=== PATIENT | female | born 1960 | race Caucasian/White ===

== ENCOUNTER 2016-12-14 18:58 | Emergency (ER) | payer MEDICARE, MEDICAID ==
[2016-12-14 19:59] LABS: #Eosinphils 0.1 thou/uL (0.0-0.7); #Lymphocytes 1.4 thou/uL (1.20-3.40); #Monocytes 0.5 thou/uL (0.11-0.59); #Neutrophils 4.1 thou/uL (1.40-6.50); %Basophils 0.8 % (0.0-1.0); %Eosinophils 2.3 % (0.0-10.0); %Lymphocytes 23.1 % (21.0-51.0); %Monocytes 7.7 % (0.0-10.0); Mean Platelet Volume 6.9 fL (7.4-10.4); Red Blood Cell (RBC) Count 4.38 mill/uL (4.20-5.40); White Blood Cell (WBC) Count 6.2 thou/uL (4.8-10.8)
[2016-12-14] MEDS ORDERED: Ondansetron ODT 4 MG TAB ONE (20:11)
[2016-12-14 20:20] LABS: ALT (SGPT) 12 U/L (8-55); AST (SGOT) 15 U/L (5-34); Alkaline Phosphatase 94 U/L (40-150); Anion Gap 10 mmol/L (10-20); BUN (Urea Nitrogen) 23 mg/dL (9.8-20.1); Bilirubin, Total 0.2 mg/dL (0.2-1.2); Calc. Creatinine Clearance 0 mL/min (70-130); Calcium 8.3 mg/dL (7.8-10.44); Carbon Dioxide 31 mmol/L (22-29); Chloride 101 mmol/L (98-107); Estimated GFR-MDRD 65; Globulin 3.8 g/dL (2.4-3.5); Protein, Total 7.4 g/dL (6.0-8.3)
== END 2016-12-14 22:15 | disposition home or self-care (01) ==
LOC: ERS 18:58
DX: K92.2 Gastrointestinal hemorrhage, unspecified (principal); M48.02 Spinal stenosis, cervical region; E03.9 Hypothyroidism, unspecified; K21.9 Gastro-esophageal reflux disease without esophagitis; F41.9 Anxiety disorder, unspecified; F31.9 Bipolar disorder, unspecified; Z79.891 Long term (current) use of opiate analgesic; Z79.899 Other long term (current) drug therapy
CPT/HCPCS: 36415; 80053; 82274; 85025; 86850; 86900; 86901; Q0162

== ENCOUNTER 2016-12-16 12:20 | Outpatient (CLI) | payer MEDICARE, MEDICAID ==
[~2016-12-16 12:20] MED LIST: Iopamidol 370 76% 100 ML VIAL ONE; Iopamidol 370 76% 50 ML VIAL FS ONE
--- NOTE | 2016-12-16 16:20 | CT ---
ABDOMEN AND PELVIC CT SCAN WITH IV CONTRAST: Date: 12/16/16 HISTORY: 56-year-old female with lower abdominal pain. Claustrophobia. History of prior tubal ligation and hy sterectomy. COMPARISON: 07/03/16. FINDINGS: Several small pleural based nodules are noted in the right lower chest. There is a stable 3.8 cm low attenuation cyst in the dome of the right lobe of the liver posteriorly. Small hiatal hernia. Statu s post cholecystectomy. Pancreas and spleen are unremarkable with a small, less than 1.0 cm diameter , stable low attenuation focus in the spleen. The kidneys show no evidence of renal calculus or acut e obstruction. No evidence for large or small bowel obstruction. Bilateral fat-containing inguina l hernias. No abscess, adenopathy, or abnormal fluid collection. IMPRESSION: Stable small pleural based right lower chest lung nodules. Stable cyst in the posterior dome of the right lobe of the liver. Status post hysterectomy. No significant new process from prior study of . POS: [facility]
== END 2016-12-16 12:21 | disposition home or self-care (01) ==
LOC: CT 12:20
PROVIDERS: ATTEND Internal Medicine Gastroenterology
DX: K92.2 Gastrointestinal hemorrhage, unspecified (principal); R10.30 Lower abdominal pain, unspecified; R91.8 Other nonspecific abnormal finding of lung field; K76.89 Other specified diseases of liver; Z90.710 Acquired absence of both cervix and uterus
CPT/HCPCS: 74177

== ENCOUNTER 2016-12-16 13:42 | Emergency (ER) | payer MEDICARE, MEDICAID ==
--- NOTE | 2016-12-16 14:13 | CT ---
CT HEAD NONCONTRAST: Date: 12/16/16 HISTORY: Syncope. Altered mental status. COMPARISON: 07/03/16. FINDINGS: There is no evidence of acute intracranial hemorrhage or infarct. The ventricles appear normal in si ze, shape, and position. There is no mass effect or midline structures. Visualized paranasal sinuses remain well aerated. IMPRESSION: No acute intracranial abnormalities are demonstrated on noncontrast CT head. Findings called to Dr. Perez in the emergency department at 1354 hours. CODE CR. POS: [facility]
[2016-12-16 14:26] LABS: #Basophils 0.1 thou/uL (0.0-0.2); #Eosinphils 0.1 thou/uL (0.0-0.7); #Lymphocytes 1.3 thou/uL (1.20-3.40); #Monocytes 0.4 thou/uL (0.11-0.59); #Neutrophils 3.3 thou/uL (1.40-6.50); %Basophils 1.2 % (0.0-1.0); %Eosinophils 2.3 % (0.0-10.0); Hematocrit 38.2 % (36.0-47.0); Mean Platelet Volume 7.2 fL (7.4-10.4); Red Blood Cell (RBC) Count 4.28 mill/uL (4.20-5.40); White Blood Cell (WBC) Count 5.1 thou/uL (4.8-10.8)
[2016-12-16 14:32] LABS: PTT 28.7 SEC (22.9-36.1); Prothrombin Time 13.1 SEC (12.0-14.7)
[2016-12-16 14:39] LABS: Bilirubin Negative (Negative); Blood, Urine Negative (Negative); Glucose, Urine (Dipstick) Negative (Negative); Ketone, Urine Negative (Negative); Nitrite Negative (Negative); Protein, Urine (Dipstick) Negative (Neg-Trace); Urobilinogen 0.2 mg/dL (0.2-1.0)
[2016-12-16 14:41] LABS: ALT (SGPT) 13 U/L (8-55); AST (SGOT) 18 U/L (5-34); Alkaline Phosphatase 104 U/L (40-150); Anion Gap 16 mmol/L (10-20); BUN (Urea Nitrogen) 27 mg/dL (9.8-20.1); Bilirubin, Total 0.2 mg/dL (0.2-1.2); CK (CPK) 113 U/L (29-168); Calc. Creatinine Clearance 0 mL/min (70-130); Calcium 8.1 mg/dL (7.8-10.44); Carbon Dioxide 27 mmol/L (22-29); Chloride 99 mmol/L (98-107); Estimated GFR-MDRD 77; Globulin 3.7 g/dL (2.4-3.5); Protein, Total 7.2 g/dL (6.0-8.3)
[2016-12-16 14:50] LABS: Troponin I Less than 0.010 ng/mL (< 0.028)
== END 2016-12-16 15:50 | disposition home or self-care (01) ==
LOC: ERS 13:42
DX: E16.2 Hypoglycemia, unspecified (principal); E03.9 Hypothyroidism, unspecified; K21.9 Gastro-esophageal reflux disease without esophagitis; I25.10 Atherosclerotic heart disease of native coronary artery without angina pectoris; F41.9 Anxiety disorder, unspecified; F31.81 Bipolar II disorder; F43.10 Post-traumatic stress disorder, unspecified; Z79.899 Other long term (current) drug therapy
CPT/HCPCS: 36416; 70450; 74177; 80053; 81003; 82553; 84484; 85025; 85610; 85730; 93005; 94760

== ENCOUNTER 2017-02-06 01:55 | Emergency (ER) | payer MEDICARE, MEDICAID ==
[2017-02-06] MEDS ORDERED: Ondansetron HCl/PF 4 MG/2 ML Vial ONE (02:56)
[2017-02-06 03:11] LABS: #Eosinphils 0.1 thou/uL (0.0-0.7); #Lymphocytes 1.3 thou/uL (1.20-3.40); #Monocytes 0.4 thou/uL (0.11-0.59); #Neutrophils 3.6 thou/uL (1.40-6.50); %Basophils 0.7 % (0.0-1.0); %Eosinophils 1.7 % (0.0-10.0); %Lymphocytes 24.2 % (21.0-51.0); %Monocytes 7.8 % (0.0-10.0); Hematocrit 38.9 % (36.0-47.0); Mean Platelet Volume 7.3 fL (7.4-10.4); Red Blood Cell (RBC) Count 4.42 mill/uL (4.20-5.40); White Blood Cell (WBC) Count 5.4 thou/uL (4.8-10.8)
[2017-02-06] MEDS ORDERED: Dicyclomine 20 MG TAB ONE (03:15)
[2017-02-06] MEDS ORDERED: Promethazine HCl 25 MG/ML VIAL ONE (03:15)
[2017-02-06 03:37] LABS: Troponin I Less than 0.010 ng/mL (< 0.028)
[2017-02-06 04:03] LABS: ALT (SGPT) 18 U/L (8-55); AST (SGOT) 25 U/L (5-34); Alkaline Phosphatase 91 U/L (40-150); Anion Gap 11 mmol/L (10-20); BUN (Urea Nitrogen) 16 mg/dL (9.8-20.1); Bilirubin, Total 0.3 mg/dL (0.2-1.2); Calc. Creatinine Clearance 0 mL/min (70-130); Calcium 8.5 mg/dL (7.8-10.44); Carbon Dioxide 31 mmol/L (22-29); Chloride 99 mmol/L (98-107); Estimated GFR-MDRD 73; Lipase 34 U/L (8-78); Protein, Total 7.8 g/dL (6.0-8.3)
[2017-02-06] MEDS ORDERED: Ibuprofen 800 MG TAB ONE (04:10)
== END 2017-02-06 05:52 | disposition home or self-care (01) ==
LOC: ERS 01:55
DX: R11.2 Nausea with vomiting, unspecified (principal); E03.9 Hypothyroidism, unspecified; K21.9 Gastro-esophageal reflux disease without esophagitis; I25.10 Atherosclerotic heart disease of native coronary artery without angina pectoris; F41.9 Anxiety disorder, unspecified; F31.9 Bipolar disorder, unspecified; M19.90 Unspecified osteoarthritis, unspecified site; Z79.899 Other long term (current) drug therapy
CPT/HCPCS: 80053; 82553; 83690; 84484; 85025; 96365; 96366; 96375; J2405; J2550

== ENCOUNTER 2017-02-07 20:34 | Emergency (ER) | payer MEDICARE, MEDICAID ==
[2017-02-07 21:36] LABS: #Eosinphils 0.1 thou/uL (0.0-0.7); #Lymphocytes 0.9 thou/uL (1.20-3.40); #Monocytes 0.4 thou/uL (0.11-0.59); #Neutrophils 2.4 thou/uL (1.40-6.50); %Basophils 0.8 % (0.0-1.0); %Eosinophils 2.5 % (0.0-10.0); %Lymphocytes 24.1 % (21.0-51.0); %Monocytes 10.8 % (0.0-10.0); Hematocrit 35.2 % (36.0-47.0); Mean Platelet Volume 6.5 fL (7.4-10.4); Red Blood Cell (RBC) Count 3.93 mill/uL (4.20-5.40); White Blood Cell (WBC) Count 3.8 thou/uL (4.8-10.8)
[2017-02-07] MEDS ORDERED: Promethazine HCl 25 MG/ML VIAL ONE (21:50)
[2017-02-07 21:56] LABS: ALT (SGPT) 15 U/L (8-55); AST (SGOT) 20 U/L (5-34); Alkaline Phosphatase 73 U/L (40-150); Anion Gap 7 mmol/L (10-20); BUN (Urea Nitrogen) 12 mg/dL (9.8-20.1); Bilirubin, Total 0.4 mg/dL (0.2-1.2); Calc. Creatinine Clearance 0 mL/min (70-130); Calcium 7.9 mg/dL (7.8-10.44); Carbon Dioxide 31 mmol/L (22-29); Chloride 104 mmol/L (98-107); Estimated GFR-MDRD 73; Globulin 3.2 g/dL (2.4-3.5); Lipase 35 U/L (8-78); Protein, Total 6.5 g/dL (6.0-8.3)
--- NOTE | 2017-02-07 23:24 | CT ---
EXAM: ABDOMEN CT WITHOUT CONTRAST PELVIC CT WITHOUT CONTRAST 02/07/17 HISTORY: Nausea. Diarrhea. Abdominal pain. COMPARISON: 06/13/13, 12/16/16. TECHNIQUE: An abdomen and pelvic CT are performed without contrast. Coronal reformatted images are submitted for interpretation. FINDINGS: ABDOMEN CT: Dependent atelectatic changes in the lung bases. Stable nodules in the right lower lobe and middle lo be. Heart size is normal. No significant pericardial fluid. Descending thoracic aorta has a normal ca liber. Abdominal aorta has a normal caliber. Symmetric attenuation of the psoas muscles. Small hiatal hernia is noted. Limited evaluation of the alimentary canal due to lack of oral contrast . No evidence of bowel obstruction. Multiple normal caliber small bowel loops are noted. Ileocecal ju nction is normal. Normal caliber appendix emanates from the cecal apex. No evidence of colonic disten tion. There is scattered fecal material throughout the colon. Occasional diverticulum. No diverticuli tis. Bilaterally, no hydronephrosis, nephrolithiasis, or perinephric fat stranding. Bilateral ureters have a normal caliber. No hydroureter, periureteral fat stranding or ureterolithiasis. Limited evaluation of the solid organs due to the lack IV contrast. Stable cyst in the right hepatic lobe measuring approximately 3 cm. No solid organ abnormality. Gallbladder is surgically absent. No mesenteric mass, lymphadenopathy, free air or free fluid. PELVIC CT: Surgically absent uterus. No mass, lymphadenopathy, free air or free fluid. Urinary bladder is unrema rkable. No bladder calcification. There are no lytic or blastic lesions in the osseous structures. IMPRESSION: 1. Stable nodules in the right lower lobe and middle lobe. 2. Stable cyst in the right hepatic lobe. 3. No evidence of nephrolithiasis or obstructive uropathy. 4. Normal caliber appendix. 5. No evidence of bowel obstruction. POS: [facility]
[2017-02-08 00:06] LABS: Bilirubin Negative (Negative); Blood, Urine Negative (Negative); Glucose, Urine (Dipstick) Negative (Negative); Ketone, Urine 15 mg/dL (Negative); Nitrite Negative (Negative); Protein, Urine (Dipstick) Negative (Neg-Trace); Urobilinogen 0.2 mg/dL (0.2-1.0)
[2017-02-08] MEDS ORDERED: Ciprofloxacin 500 MG TAB ONE (01:00)
== END 2017-02-08 01:00 | disposition home or self-care (01) ==
LOC: ERS 20:34
DX: R10.30 Lower abdominal pain, unspecified (principal); R19.7 Diarrhea, unspecified; K58.9 Irritable bowel syndrome, unspecified; E03.9 Hypothyroidism, unspecified; K21.9 Gastro-esophageal reflux disease without esophagitis; I25.10 Atherosclerotic heart disease of native coronary artery without angina pectoris; F41.9 Anxiety disorder, unspecified; F31.9 Bipolar disorder, unspecified; Z79.891 Long term (current) use of opiate analgesic; Z79.899 Other long term (current) drug therapy
CPT/HCPCS: 36415; 74176; 80053; 81003; 83690; 85025; 96365; 96366; 96372; J2550

== ENCOUNTER → 2017-02-28 | Outpatient (CLI) | payer MEDICARE, MEDICAID | LOC: CANPRECLI → BICULT 07:04 | PROVIDERS: ATTEND Nurse Practitioner Family | DX: Z53.9 Procedure and treatment not carried out, unspecified reason (principal); N63.10 Unspecified lump in the right breast, unspecified quadrant; N64.4 Mastodynia | CPT/HCPCS: 76642; G0204; G0279; 77066 ==

== ENCOUNTER 2017-03-04 17:40 | Inpatient (IN) | payer MEDICARE, MEDICAID ==
[~2017-03-04 17:40] MED LIST changes: +ISOVUE-370 76%-LOCM 1 ML ONE; -Iopamidol 370 76% 100 ML VIAL ONE; -Iopamidol 370 76% 50 ML VIAL FS ONE
[2017-03-04 18:45] LABS: #Basophils 0.1 thou/uL (0.0-0.2); #Lymphocytes 0.2 thou/uL (1.20-3.40); #Monocytes 0.6 thou/uL (0.11-0.59); #Neutrophils 3.5 thou/uL (1.40-6.50); %Basophils 1.3 % (0.0-1.0); %Lymphocytes 4.5 % (21.0-51.0); %Monocytes 13.9 % (0.0-10.0); %Neutrophils 79.3 % (42.0-75.0); Hemoglobin 11.1 g/dL (12.0-16.0); Mean Corpuscular HGB CONC 32.4 g/dL (32.0-36.0); Mean Corpuscular Hemoglobin 28.3 pg (27.0-31.0); Mean Corpuscular Volume 87.3 fl (81.0-99.0); Mean Platelet Volume 6.7 fL (7.4-10.4); Platelet Count 200 thou/uL (130-400); RBC Distribution Width 12.7 % (11.5-14.5); Red Blood Cell (RBC) Count 3.92 mill/uL (4.20-5.40); White Blood Cell (WBC) Count 4.5 thou/uL (4.8-10.8)
--- NOTE | 2017-03-04 18:50 | RAD ---
UPRIGHT PORTABLE CHEST ONE VIEW: 03/04/17 HISTORY: 56-year-old female with fever and cough and bodyaches. Heart size is within upper range of normal limits. The lungs are clear. Large body habitus someone lo wers the sensitivity of this study. IMPRESSION: No acute intrathoracic disease. No evidence of pneumonia. Stable from prior study, 11/12/16. POS: [facility]
[2017-03-04 19:04] LABS: Anion Gap 11 mmol/L (10-20); BUN (Urea Nitrogen) 12 mg/dL (9.8-20.1); Calc. Creatinine Clearance 0 mL/min (70-130); Calcium 8.2 mg/dL (7.8-10.44); Carbon Dioxide 30 mmol/L (22-29); Chloride 99 mmol/L (98-107); Estimated GFR-MDRD 78; Glucose 119 mg/dL (70-105); Sodium 136 mmol/L (136-145)
[2017-03-04 19:35] LABS: CKMB 0.6 ng/mL (0-6.6); Troponin I Less than 0.010 ng/mL (< 0.028)
[2017-03-04] MEDS ORDERED: Mag-Al 1200 mg/1200 mg/30 ML UDCUP ONE (19:47)
[2017-03-04] MEDS ORDERED: Lidocaine Viscous Sol 2% 15 ml UD Cup ONE (19:47)
[2017-03-04] MEDS ORDERED: Ketorolac Tromethamine 30 MG/ML VIAL ONE (19:48)
[2017-03-04] MEDS ORDERED: Oseltamivir 75 MG CAP PO SCH (20:00)
--- NOTE | 2017-03-04 22:30 | CT ---
CHEST CT ANGIOGRAM INCLUDING 3D RENDERING: HISTORY: 56-year-old female with hypoxia and dyspnea and fever. COMPARISON: Chest CT 08/15/14. There are multiple small overall stable appearing pulmonary nodules bilaterally when compared to the prior 08/15/14 study. There is also some enlargement of the right hilar lymph node region which was als o demonstrated and shows little change from the prior 2014 study. There is somewhat less than optimal contrast opacification of the pulmonary artery tree. The central pulmonary arteries are free of thro mbus. The more peripheral pulmonary arteries are somewhat less than optimally evaluated because of th e decreased contrast bolus. There is no significant CT evidence for acute pulmonary embolism. No ple ural effusion or pericardial effusion. Cyst in the posterior right upper lobe of the liver. IMPRESSION: Relatively poor pulmonary artery opacification. No central pulmonary artery thrombosis. Some of the m id and more peripheral pulmonary arteries are less than optimally evaluated, but there is no CT evide nce for significant acute pulmonary embolism demonstrated. Small stable bilateral nodules. Minimal ri ght hilar lymph node enlargement but this appeared to be present back on the 2014 study. Stable liver cyst. POS: [facility]
[2017-03-04 23:22] VITALS: BMI 50.9
[2017-03-04] MEDS ORDERED: Calcium Carbonate 500 MG ChewTAB PO PRN (23:23)
[2017-03-04] MEDS ORDERED: Chloraseptic Spray 180 ml Bottle PO PRN (23:23)
[2017-03-04] MEDS ORDERED: Benzonatate 100 MG CAP PO PRN (23:23)
[2017-03-04] MEDS ORDERED: hydrALAZINE 20 MG/ML VIAL SLOW IVP PRN (23:23)
[2017-03-04] MEDS ORDERED: Famotidine 20 MG TAB PO SCH (23:45)
[2017-03-05] MEDS: Ondansetron HCl/PF 4 MG/2 ML Vial IVP PRN ×4 (00:04→19:38)
[2017-03-05] MEDS: Famotidine 20 MG TAB PO SCH ×3 (00:16→20:24)
[2017-03-05] MEDS: Sodium Chloride 0.9% 1,000 ML IV SCH ×2 (00:18→13:00)
[2017-03-05 00:20] LABS: Troponin I Less than 0.010 ng/mL (< 0.028)
[2017-03-05] MEDS ORDERED: Acetaminophen 325 MG TAB PO PRN (01:42)
[2017-03-05] MEDS: HYDROcodone/Acetaminophen 10/325 mg Tablet PO PRN ×3 (02:04→20:24)
[2017-03-05 06:25] LABS: ALT (SGPT) 16 U/L (8-55); AST (SGOT) 22 U/L (5-34); Albumin 3.2 g/dL (3.5-5.0); Alkaline Phosphatase 64 U/L (40-150); Anion Gap 9 mmol/L (10-20); BUN (Urea Nitrogen) 12 mg/dL (9.8-20.1); Bilirubin, Total 0.2 mg/dL (0.2-1.2); Calc. Creatinine Clearance 201 mL/min (70-130); Calcium 7.8 mg/dL (7.8-10.44); Carbon Dioxide 27 mmol/L (22-29); Estimated GFR-MDRD 83; Glucose 95 mg/dL (70-105); Protein, Total 6.2 g/dL (6.0-8.3); Sodium 133 mmol/L (136-145)
[2017-03-05 06:29] LABS: Troponin I Less than 0.010 ng/mL (< 0.028)
[2017-03-05 06:32] LABS: Chloride 101 mmol/L (98-107)
[2017-03-05 06:40] LABS: Band 2 % (5-11); Eosinophils 1 % (0-10); Hemoglobin 9.9 g/dL (12.0-16.0); Lymphocytes 6 % (21-51); MDiff Complete? YES; Mean Corpuscular HGB CONC 31.5 g/dL (32.0-36.0); Mean Corpuscular Hemoglobin 27.8 pg (27.0-31.0); Mean Corpuscular Volume 88.2 fl (81.0-99.0); Mean Platelet Volume 7.1 fL (7.4-10.4); Monocytes 9 % (0-10); Neutrophil 81 % (42-75); PLT Morphology Comment Appears Adequate; Platelet Count 202 thou/uL (130-400); RBC Distribution Width 12.8 % (11.5-14.5); Red Blood Cell (RBC) Count 3.56 mill/uL (4.20-5.40); White Blood Cell (WBC) Count 3.6 thou/uL (4.8-10.8)
--- NOTE | 2017-03-05 07:11 | HP ---
CHIEF COMPLAINT: Flu-like symptoms and shortness of breath. HISTORY OF PRESENT ILLNESS: This is a 56-year-old pleasant lady who was apparently in usual state of health, called 911 because of body aches, shortness of breath, fever. She was brought to the emerge ncy room. Flu B was positive and in the ER, she was being evaluated and was monitored and the ER luanney saman noted that her room air sats were as low as 83. Because she was concerned, he called me and shena levine are going to admit the patient for hypoxia and the treatment of the flu. The patient says that she had a fever of 102, body aches, cough since yesterday morning because of being around people who wer e sick. The patient also complains of some right lower extremity tenderness, pain which has been on and off for a long time. PAST MEDICAL HISTORY: Significant for IBS, hypothyroidism, GERD, degenerative disk disease, some mil d coronary artery disease, folliculitis, anxiety, and depression. ALLERGIES: PAPER TAPE, CEFAZOLIN, PYRIDIUM, SOLU-MEDROL, SULFA ANTIBIOTICS. MEDICATIONS: Please see MAR. SOCIAL HISTORY: Does not smoke, drink, or do recreational drugs. PAST SURGICAL HISTORY: Significant for tubal ligation, carpal tunnel surgery, cyst removal, cholecys tectomy, hysterectomy, heart catheterization. SOCIAL HISTORY: Does not smoke, drink, or do recreational drugs. FAMILY HISTORY: Negative for diabetes and hypertension. MEDICATIONS: Please see MAR. REVIEW OF SYSTEMS: Significant for fever, chills, headache, shortness of breath, otherwise no eye pa in, no hearing loss, . Some cough with on and off sputum production. No chest pain, no diarrhe a, dysuria, or polyuria. No memory or mood changes. No neck pain. Complains of pain in the right l ower extremity. PHYSICAL EXAMINATION: VITAL SIGNS: Blood pressure is: 176/96, respirations 18, temperature 99.5, satting 95% on room air. The patient's blood pressure was 133/75, pulse 105, respirations 14, temperature 98.5. GENERAL: The patient is lying in bed in distress because of the body pain, chest pain. The patient' s pulse is tachycardic. HEENT: Atraumatic, normocephalic. Pupils equally, round, reactive to light. Extraocular movements are intact. Mucous membranes are moist. NECK: Supple. No JVD. CHEST: Breath sounds are heard. HEART: S1, S2 normal. Tachycardic. ABDOMEN: Soft, obese. Bowel sounds heard. EXTREMITIES: There is tenderness and erythema to the right leg which she says is on and off, some mi ld edema on both the legs. NEUROLOGICAL: Alert, awake, oriented. No cranial deficits. No sensorimotor deficits. PSYCHIATRIC: She has normal affect. LABORATORY DATA: A CT scan of the chest is with PE protocol is pending. Chest x-ray shows no pneumo cristobal. Troponin is less than 0.01. Sodium is 136, potassium is 4, creatinine is 99, BUN is 12, creati nine is 7.76, glucose is 119. WBC count is 4.5, hemoglobin is 11, platelet is 200. ASSESSMENT AND PLAN: 1. 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 The patient is on Tamiflu. Neb treatments will be in place. We w ill do a sputum culture and do the need for. 2. Cellulitis, possibly secondary to venous stasis. We will do IV vancomycin. We will do blood cul tures and do Dopplers to rule out deep vein thrombosis. 3. Acute respiratory failure with hypoxia with sats of 83%. We will do CT scan of the chest with PE protocol. I will consult Pulmonary and follow their recommendations. 4. Morbid obesity. The patient will be counseled to lose weight. 5. Possible obstructive sleep apnea, stable. We will do echocardiogram and BNP to check for cardiac status and pulmonary hypertension as well. 6. Lovenox for deep venous thrombosis prophylaxis. I will work with the consultants for further car ing for the patient.
[2017-03-05] MEDS: Enoxaparin Sodium 40 MG/0.4 ML SYRINGE SC SCH (08:57)
[2017-03-05] MEDS: Oseltamivir 75 MG CAP PO SCH ×2 (08:58→20:25)
[2017-03-05] MEDS ORDERED: FLU VACC QS2017-18 36 mo. & older 0.5 ML SYRINGE IM ONE (09:00)
--- NOTE | 2017-03-05 11:18 | ULT ---
BILATERAL LOWER EXTREMITY VENOUS DOPPLER: Date: 03/05/17 HISTORY: Bilateral lower extremity swelling. COMPARISON: None. FINDINGS: Real-time Baldwin scale and color Doppler with spectral analysis of the bilateral lower extremity venous system was performed. The common femoral, femoral, proximal portions of greater saphenous and deep f emoral veins, as well as the popliteal and posterior tibial veins are interrogated. Normal flow, augmentation, and compression. No deep venous thrombosis. Mild edema. IMPRESSION: No deep venous thrombosis. POS: [facility]
[2017-03-05 12:15] LABS: Bilirubin Negative (Negative); Blood, Urine Negative (Negative); Clarity CLOUDY (Clear); Glucose, Urine (Dipstick) Negative (Negative); Leukocyte Negative (Negative); Nitrite Negative (Negative); Protein, Urine (Dipstick) 30 mg/dL (Neg-Trace); Specific Gravity, Urine 1.038 (1.002-1.036); Urobilinogen 0.2 mg/dL (0.2-1.0)
[2017-03-05 12:16] LABS: Bacteria/HPF Rare-Few HPF (None Seen); Hyaline Casts/LPF 0-3 HYALINE CAST LPF (0-3 Hyaline); WBC/HPF 0-3 HPF (0-3)
[2017-03-05 12:57] LABS: Troponin I Less than 0.010 ng/mL (< 0.028)
[2017-03-05] MEDS: HYDROcodone/Acetaminophen 5/325 mg Tablet PO PRN (14:57)
--- NOTE | 2017-03-05 16:26 | PDOC.PN ---
- Subjective Encounter Start Date: 03/05/17 Encounter Start Time: 16:24 Patient seen and examined. No new complaints. No overnight events - Objective MAR Reviewed: Yes Vital Signs & Weight: Vital Signs (12 hours) Temp Pulse Resp BP Pulse Ox 03/05/17 16:00 98.3 F 94 18 117/56 L 03/05/17 12:39 99 F 68 20 127/61 95 03/05/17 10:43 98.6 F 88 18 Result Diagrams: 03/05/17 05:30 03/05/17 05:30 Phys Exam - Physical Examination Constitutional: NAD HEENT: PERRLA Neck: no JVD Respiratory: no wheezing Cardiovascular: no significant murmur Gastrointestinal: non-tender Musculoskeletal: pulses present, edema present erythema resolving Neurological: moves all 4 limbs Psychiatric: A&O x 3 Dx/Plan (1) SIRS (systemic inflammatory response syndrome) Code(s): R65.10 - SIRS OF NON-INFECTIOUS ORIGIN W/O ACUTE ORGAN DYSFUNCTION Status: Acute (2) Influenza B Code(s): J10.1 - FLU DUE TO OTH IDENT INFLUENZA VIRUS W OTH RESP MANIFEST Status: Acute (3) Cellulitis Code(s): L03.90 - CELLULITIS, UNSPECIFIED Status: Acute (4) GERD (gastroesophageal reflux disease) Code(s): K21.9 - GASTRO-ESOPHAGEAL REFLUX DISEASE WITHOUT ESOPHAGITIS Status: Acute (5) Obesity, Class III, BMI 40-49.9 (morbid obesity) Code(s): E66.01 - MORBID (SEVERE) OBESITY DUE TO EXCESS CALORIES Status: Acute (6) Acute respiratory failure with hypoxia Code(s): J96.01 - ACUTE RESPIRATORY FAILURE WITH HYPOXIA Status: Acute - Plan * monitor pulse ox * pulm input awaited * oxygenation improved
[2017-03-05] MEDS ORDERED: Diazepam 5 MG TAB PO SCH (23:00)
[2017-03-05] MEDS ORDERED: DULoxetine 30 MG CAP PO SCH (23:00)
--- NOTE | 2017-03-05 23:04 | CON ---
DATE OF CONSULTATION: 03/05/2017 HISTORY OF PRESENT ILLNESS: Ms. Angela is a 56-year-old female. She presented to the hospital the [facility], 03/04/2017 and was admitted with complaints of bodyaches, fever, chills, and shortness of breat h. She was noted to be hypoxemic in the emergency room, so she was admitted. PAST MEDICAL HISTORY: Remarkable for irritable bowel syndrome, hypothyroidism, reflux disease, degenerative disk disease, m ild coronary disease, and history of depression. SOCIAL HISTORY: She is nonsmoker, nondrinker. She denies drugs. ALLERGIES: She reports allergies to CEPHALOSPORIN, PYRIDIUM, STEROIDS, SULFA. PAST SURGICAL HISTORY: Remarkable for cholecystectomy, tubal ligation, carpal tunnel surgery, hyster ectomy, and heart catheterization. There is no family history of diabetes, hypertension, lung disease at an early age. REVIEW OF SYSTEMS: Positive for fever, subjective chills, headache. She did not measure her tempera ture at home, what felt like she had fever. Shortness of breath was only if she moved around and it was more of a sensation of shortness of breath than actual tachypnea. She has had a cough with this. She denies pleurisy. She has had no hemoptysis. She denies orthopnea or paroxysmal nocturnal dysp micaela. Remainder of her 10-point review of systems is otherwise negative. PHYSICAL EXAMINATION: VITAL SIGNS: She is afebrile, heart rate is 94, respiratory rate is 18, oximetry is 95 on 1 liter. Blood pressure 117/56. HEENT: Pupils are equal. Her conjunctiva is injected. NECK: Neck supple. No lymphadenopathy. LUNGS: Remarkable for clear breath sounds. She is not wheezing. HEART: Regular rhythm. S1 and S2 are normal. ABDOMEN: Soft. EXTREMITIES: Nontender extremities without clubbing, cyanosis, or edema. She does have some stasis changes, worse in her right lower limb and her left lower limb. She says these areas have been changed in years. LABOATORY DATA: White count 3.6, hemoglobin 9.9, platelets 202,000. Sodium 133, potassium 4, chlori de 101, bicarb 27, BUN 12, creatinine 0.7. Chest radiograph was reviewed and shows no infiltrates. CT pulmonary angiogram was done shows some s mall nodular densities in both lungs. Compared to 08/25/2016 stay, these were unchanged. Support pulmonary angiogram, but there is no alveolar infiltrates suggestive of pneumonia. Chest rad iograph and chest CT were reviewed by me. Flu swab was apparently positive. IMPRESSION: Influenza. There is no clinical evidence of pneumonia. She may have a cough, but I suspect this is viral mediat ed. I really do not see a clear cut reason to keep her on telemetry and is debatable whether or not she needs to be in the hospital now that she has been hydrated. She does not look like she has flu. She was admitted with a diagnosis of cellulitis, but she tells me this is how her legs always look. Her hypoxemia is most likely secondary to atelectasis and mucous plugging with her bronchial inflamma tion. I would doubt that she has sleep apnea, but this can be worked up in the hospital. I will see her as needed in the future. ADDENDUM: Full 70 minutes involved this consult, greater than 50% of the time was spent counseling the patient on the unit discussing care with the staff.
[2017-03-06] MEDS: Ondansetron HCl/PF 4 MG/2 ML Vial IVP PRN ×2 (00:26→11:41)
[2017-03-06] MEDS: HYDROcodone/Acetaminophen 10/325 mg Tablet PO PRN (00:26)
[2017-03-06] MEDS: HYDROcodone/Acetaminophen 5/325 mg Tablet PO PRN ×2 (05:58→12:09)
[2017-03-06] MEDS ORDERED: DULoxetine 30 MG CAP PO SCH (09:00)
[2017-03-06] MEDS: Famotidine 20 MG TAB PO SCH (09:26)
[2017-03-06] MEDS: Oseltamivir 75 MG CAP PO SCH ×2 (09:26→17:22)
[2017-03-06] MEDS: Enoxaparin Sodium 40 MG/0.4 ML SYRINGE SC SCH (09:26)
[2017-03-06 11:41] VITALS: TEMP 97.6
[2017-03-06 13:23] LABS: Vancomycin, Trough 17.3 ug/mL
[2017-03-06 17:12] VITALS: BP 135/64
[2017-03-06] MEDS ORDERED: Diazepam 5 MG TAB PO SCH (21:00)
--- NOTE | 2017-03-06 23:46 | DIS ---
DATE OF ADMISSION: 03/04/2017 DATE OF DISCHARGE: 03/06/2017 DIAGNOSES ON DISCHARGE: Systemic inflammatory response syndrome secondary to flu B, stable; acute re spiratory failure with hypoxia, probably secondary to bronchial inflammation and mucous plugging, bet ter; cellulitis, resolved; morbid obesity, counseled; obstructive sleep apnea, outpatient followup [facility] Dr. Celaya; hypothyroidism, stable; gastroesophageal reflux disease, stable; degenerative disk dise ase, stable; coronary artery disease, stable; anxiety, stable. DISCHARGE MEDICATIONS: The patient's discharge medications include Tamiflu 75 mg p.o. b.i.d. to comp lete the course, Levaquin 750 p.o. daily to complete the course for 7 more days, Combivent p.r.n. for shortness of breath, and Tessalon Perles p.r.n. for cough in addition to continuation of all other h ome medications. BRIEF HOSPITAL COURSE: A 56-year-old pleasant lady, who came into the hospital with flu-like symptom s. Please refer to my H and P for further details. The patient was diagnosed with flu B. She was h ydrated. She was given IV antibiotics as well. She improved with this treatment. Dr. Celaya was con sulted because she was hypoxemic in the emergency room. The patient also had a CT scan this hospital stay with PE protocol which does not show PE and no evidence of pneumonia. The patient was seen by Dr. Celaya, she thought that was probably secondary to bronchial inflammation and recommended that the patient could be discharged and condition was resolved with the improvement of the flu. The patient is doing much better today. Her oxygen saturation is 92 on room air. She was asked to hydrate and complete the medications and come back and follow up with PCP in [address] Celaya in 1 month. Kalpesh levine is right now medically stable to be discharged with outpatient followup with the PCP. PHYSICAL EXAMINATION: VITAL SIGNS: Blood pressure when she came in was 160/80, respirations 18, temperature afebrile, satt ing 91% on room air. GENERAL: The patient is lying in bed, in no apparent distress. HEENT: Atraumatic and normocephalic. Pupils are equally round and reactive to light. Extraocular m ovements are intact. Mucous membranes are moist. NECK: Supple. No JVD. CHEST: Breath sounds heard. There are no rales or rhonchi. HEART: S1, S2. No murmurs or gallops. ABDOMEN: Soft. EXTREMITIES: No cyanosis, clubbing, or edema. Distal pulses present. NEUROLOGIC: Alert, awake, and oriented. No cranial nerve deficits. No sensorimotor deficits. The patient at the time of discharge is stable. She was breathing comfortably. She is asked to foll ow up with the PCP and the business solutions consultant. She is asked to come back to the emergency room in case sy mptoms recur. Total time for this discharge took 35 minutes.
--- NOTE | 2017-03-25 20:53 | EKG ---
Test Reason : Blood Pressure : / mmHG Vent. Rate : 095 BPM Atrial Rate : 095 BPM P-R Int : 154 ms QRS Dur : 088 ms QT Int : 350 ms P-R-T Axes : 055 -08 060 degrees QTc Int : 439 ms Normal sinus rhythm Low voltage QRS Borderline ECG Confirmed by SANDRA MARTINEZ, ZACH ([id number]), mapping editor USHA KAMARA ([id number] on 03/25/2017 8:52:34 PM Referred By: Confirmed By:ZACH FLORES MD
== END 2017-03-06 17:50 | disposition home or self-care (01) | DRG 193 ==
LOC: ERS 17:40 → 2NO 22:48 → OBSVTOIN 03-05 10:42
PROVIDERS: ADMIT Internal Medicine; ATTEND Internal Medicine
DX: J10.1 Influenza due to other identified influenza virus with other respiratory manifestations (principal); J96.01 Acute respiratory failure with hypoxia; E66.01 Morbid (severe) obesity due to excess calories; R65.10 Systemic inflammatory response syndrome (SIRS) of non-infectious origin without acute organ dysfunction; L03.115 Cellulitis of right lower limb; Z68.43 Body mass index [BMI] 50.0-59.9, adult; J98.11 Atelectasis; T17.990A Other foreign object in respiratory tract, part unspecified in causing asphyxiation, initial encounter; J20.8 Acute bronchitis due to other specified organisms; X58.XXXA Exposure to other specified factors, initial encounter; G47.33 Obstructive sleep apnea (adult) (pediatric); K21.9 Gastro-esophageal reflux disease without esophagitis; I25.10 Atherosclerotic heart disease of native coronary artery without angina pectoris; F41.9 Anxiety disorder, unspecified; E03.9 Hypothyroidism, unspecified
CPT/HCPCS: 36415; 71010; 71275; 80048; 80053; 80202; 81001; 82553; 83880; 84484; 85025; 87040; 87804; 93005; 93306; 93970; 94640; 96372; A4216; G8978-GP-CM; G8979-GP-CK; J1650; J1885; J1956; J2405; J3370; J7050; J7620

== ENCOUNTER 2017-03-12 13:38 | Inpatient (IN) | payer MEDICARE, MEDICAID ==
[2017-03-12] MEDS ORDERED: Fentanyl 100 MCG/2 ML VIAL ONE (14:11)
[2017-03-12] MEDS ORDERED: Adacel (T-DAP) 0.5 ML VIAL ONE (15:24)
[2017-03-12 15:25] LABS: #Eosinphils 0.1 thou/uL (0.0-0.7); #Lymphocytes 0.7 thou/uL (1.20-3.40); #Monocytes 0.6 thou/uL (0.11-0.59); #Neutrophils 5.9 thou/uL (1.40-6.50); %Basophils 0.5 % (0.0-1.0); %Eosinophils 1.7 % (0.0-10.0); %Monocytes 7.6 % (0.0-10.0); %Neutrophils 80.3 % (42.0-75.0); Hemoglobin 10.8 g/dL (12.0-16.0); Mean Corpuscular HGB CONC 31.5 g/dL (32.0-36.0); Mean Corpuscular Hemoglobin 27.9 pg (27.0-31.0); Mean Corpuscular Volume 88.7 fl (81.0-99.0); Mean Platelet Volume 6.5 fL (7.4-10.4); Platelet Count 302 thou/uL (130-400); RBC Distribution Width 13.1 % (11.5-14.5); Red Blood Cell (RBC) Count 3.88 mill/uL (4.20-5.40); White Blood Cell (WBC) Count 7.4 thou/uL (4.8-10.8)
[2017-03-12 15:33] LABS: INR-International Normal Ratio 1.1; PTT 28.4 SEC (22.9-36.1); Prothrombin Time 14.5 SEC (12.0-14.7)
[2017-03-12] MEDS ORDERED: Lidocaine 1% w/Epinephrine 1:100K 20 ML VIAL ONE (15:43)
[2017-03-12 15:49] LABS: ALT (SGPT) 16 U/L (8-55); AST (SGOT) 23 U/L (5-34); Albumin 3.2 g/dL (3.5-5.0); Alcohol Less than 10 mg/dL (Less than 10); Alkaline Phosphatase 52 U/L (40-150); Anion Gap 10 mmol/L (10-20); BUN (Urea Nitrogen) 15 mg/dL (9.8-20.1); Bilirubin, Total 0.3 mg/dL (0.2-1.2); Calc. Creatinine Clearance 0 mL/min (70-130); Calcium 7.8 mg/dL (7.8-10.44); Carbon Dioxide 31 mmol/L (22-29); Chloride 99 mmol/L (98-107); Estimated GFR-MDRD 76; Globulin 3.3 g/dL (2.4-3.5); Glucose 114 mg/dL (70-105); Lipase 22 U/L (8-78); Potassium 4.2 mmol/L (3.5-5.1); Protein, Total 6.5 g/dL (6.0-8.3); Sodium 136 mmol/L (136-145)
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
[2017-03-12] MEDS ORDERED: ISOVUE-370 76%-LOCM 1 ML ONE (17:04)
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
[2017-03-12] MEDS ORDERED: Ketorolac Tromethamine 30 MG/ML VIAL ONE (17:40)
[2017-03-12] MEDS ORDERED: traMADol HCl 50 MG TAB PO PRN (18:32)
[2017-03-12] MEDS ORDERED: Dextrose 5% in Water 1,000 ML IV PRN (18:32)
[2017-03-12] MEDS ORDERED: Dextrose 50% Abboject 50 ML SYRINGE SLOW IVP PRN (18:32)
[2017-03-12] MEDS ORDERED: Ibuprofen 600 MG TAB PO PRN (18:32)
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
[2017-03-12] MEDS: Acetaminophen 500 MG TAB PO SCH ×2 (20:04→23:14)
[2017-03-12] MEDS: Sodium Chloride 0.9% 1,000 ML IV SCH ×2 (20:04→21:13)
[2017-03-12] MEDS: traMADol HCl 50 MG TAB PO PRN (21:09)
[2017-03-12] MEDS: Famotidine/PF 20 mg/2ml Vial SLOW IVP SCH (21:09)
[2017-03-12] MEDS: Ketorolac Tromethamine 30 MG/ML VIAL IVP SCH (23:13)
[2017-03-12 23:28] VITALS: BMI 50.4
[2017-03-13] MEDS: traMADol HCl 50 MG TAB PO PRN ×3 (03:11→15:07)
[2017-03-13 05:41] LABS: #Eosinphils 0.1 thou/uL (0.0-0.7); #Lymphocytes 0.8 thou/uL (1.20-3.40); #Monocytes 0.5 thou/uL (0.11-0.59); #Neutrophils 3.4 thou/uL (1.40-6.50); %Eosinophils 2.2 % (0.0-10.0); %Neutrophils 70.8 % (42.0-75.0); Hemoglobin 9.2 g/dL (12.0-16.0); Mean Corpuscular HGB CONC 30.6 g/dL (32.0-36.0); Mean Corpuscular Hemoglobin 26.9 pg (27.0-31.0); Mean Corpuscular Volume 87.8 fl (81.0-99.0); Mean Platelet Volume 6.7 fL (7.4-10.4); Platelet Count 281 thou/uL (130-400); RBC Distribution Width 12.8 % (11.5-14.5); White Blood Cell (WBC) Count 4.8 thou/uL (4.8-10.8)
[2017-03-13] MEDS: Sodium Chloride 0.9% 1,000 ML IV SCH ×2 (05:43→18:03)
[2017-03-13 05:56] LABS: Anion Gap 10 mmol/L (10-20); BUN (Urea Nitrogen) 16 mg/dL (9.8-20.1); Calc. Creatinine Clearance 204 mL/min (70-130); Calcium 7.3 mg/dL (7.8-10.44); Carbon Dioxide 33 mmol/L (22-29); Chloride 102 mmol/L (98-107); Estimated GFR-MDRD 86; Glucose 94 mg/dL (70-105); Potassium 3.6 mmol/L (3.5-5.1); Sodium 141 mmol/L (136-145)
[2017-03-13] MEDS: Ketorolac Tromethamine 30 MG/ML VIAL IVP SCH ×4 (05:59→23:54)
[2017-03-13] MEDS: Acetaminophen 500 MG TAB PO SCH ×3 (06:00→18:16)
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
[2017-03-13] MEDS: Benzonatate 100 MG CAP PO PRN ×3 (09:00→20:43)
[2017-03-13] MEDS: Famotidine/PF 20 mg/2ml Vial SLOW IVP SCH ×2 (09:01→20:42)
--- NOTE | 2017-03-13 10:23 | RAD ---
RADIOGRAPH RIGHT KNEE 4 VIEWS: DATE: 03/13/17. TIME: 8:20 a.m. HISTORY: Hemarthrosis of the right knee. Suspected occult fracture. FINDINGS: There is an approximately 7 x 2 cm suprapatellar ovkl-lpunyy-znumxdrosac mass posterior to the derrick ceps tendon, consistent with hematoma. There is no fracture or dislocation. Joint spaces are mainta ined without erosions. There are tiny marginal osteophytes. No destructive osseous lesion is identi fied. No periosteal elevation. No soft tissue calcifications. IMPRESSION: 1. Suprapatellar hemarthrosis. 2. Mild osteoarthrosis of the knee. 3. No fracture identified. POS: [facility]
--- NOTE | 2017-03-13 15:02 | ULT ---
BILATERAL CAROTID DUPLEX ULTRASOUND: HISTORY: Syncope. TECHNIQUE: Baldwin scale ultrasound with color flow and spectral Doppler imaging of the extracranial carotid artery systems was performed bilaterally. FINDINGS: There is plaque formation in the left proximal ICA. The peak systolic velocity in the right ICA measures 86 cm/s with an end-diastolic velocity of 33 cm/ s and a systolic ratio of 1.14. The peak systolic velocity in the left ICA measures 88 cm/s with an end-diastolic velocity of 32 cm/s and a systolic ratio of 0.91. Flow in both vertebral arteries remains antegrade. IMPRESSION: No evidence of hemodynamically significant stenosis. POS: [facility]
[2017-03-13] MEDS ORDERED: Benzonatate 100 MG CAP PO PRN (18:54)
[2017-03-13] MEDS ORDERED: HYDROcodone/Acetaminophen 10/325 mg Tablet PO PRN (18:56)
[2017-03-13] MEDS ORDERED: traMADol HCl 50 MG TAB PO SCH (20:00)
[2017-03-13] MEDS: Pregabalin 75 MG CAP PO SCH (20:42)
[2017-03-13] MEDS: Enoxaparin Sodium 30 MG/0.3 ML SYRINGE SC SCH (20:42)
[2017-03-13] MEDS: traMADol HCl 50 MG TAB PO SCH (20:43)
[2017-03-13] MEDS: Diazepam 5 MG TAB PO PRN (20:44)
[2017-03-13] MEDS: Loratadine 10 MG TAB PO SCH (20:44)
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
[2017-03-14] MEDS: traMADol HCl 50 MG TAB PO SCH ×2 (02:20→09:04)
[2017-03-14] MEDS: HYDROcodone/Acetaminophen 10/325 mg Tablet PO PRN ×3 (05:35→16:17)
[2017-03-14] MEDS: Ketorolac Tromethamine 30 MG/ML VIAL IVP SCH (05:36)
[2017-03-14] MEDS: buPROPion HCl 100 MG TAB PO SCH (09:03)
[2017-03-14] MEDS: Famotidine/PF 20 mg/2ml Vial SLOW IVP SCH ×2 (09:03→20:34)
[2017-03-14] MEDS: Pregabalin 75 MG CAP PO SCH ×2 (09:03→20:35)
[2017-03-14] MEDS: Benzonatate 100 MG CAP PO PRN ×3 (09:04→20:35)
[2017-03-14] MEDS: Furosemide 40 MG TAB PO SCH (09:05)
[2017-03-14] MEDS: Loratadine 10 MG TAB PO SCH ×2 (09:05→20:35)
[2017-03-14] MEDS: Estradiol 1 MG TAB PO SCH (09:05)
[2017-03-14] MEDS: Enoxaparin Sodium 30 MG/0.3 ML SYRINGE SC SCH ×2 (09:05→20:34)
[2017-03-14] MEDS ORDERED: Ibuprofen 800 MG TAB PO PRN (10:29)
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
[2017-03-14] MEDS: Diazepam 5 MG TAB PO PRN (17:26)
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
[2017-03-15] MEDS: HYDROcodone/Acetaminophen 10/325 mg Tablet PO SCH ×4 (01:50→14:15)
[2017-03-15] MEDS: HYDROcodone/Acetaminophen 10/325 mg Tablet PO PRN ×3 (02:36→18:07)
[2017-03-15] MEDS: Benzonatate 100 MG CAP PO PRN (02:36)
[2017-03-15] MEDS: Furosemide 40 MG TAB PO SCH (08:39)
[2017-03-15] MEDS: buPROPion HCl 100 MG TAB PO SCH (08:40)
[2017-03-15] MEDS: Pregabalin 75 MG CAP PO SCH (08:41)
[2017-03-15] MEDS: Estradiol 1 MG TAB PO SCH (08:41)
[2017-03-15] MEDS: Loratadine 10 MG TAB PO SCH (08:41)
[2017-03-15] MEDS: Enoxaparin Sodium 30 MG/0.3 ML SYRINGE SC SCH (08:42)
[2017-03-15] MEDS: Famotidine/PF 20 mg/2ml Vial SLOW IVP SCH (08:42)
[2017-03-15] MEDS ORDERED: Polyethylene Glycol 3350 17 GM Packet PO SCH (09:00)
[2017-03-15] MEDS ORDERED: Senokot S 8.6-50 MG TAB PO SCH (09:00)
[2017-03-15 16:53] VITALS: BP 133/78; TEMP 98.6
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
== END 2017-03-15 18:40 | DRG 563 ==
LOC: ERS 13:38 → SURG A 19:00
PROVIDERS: ADMIT Surgery; ATTEND Surgery
PROC: 0HQLXZZ Repair Left Lower Leg Skin, External Approach (ICD-10-PCS; principal; 2017-03-12)
DX: S82.54XA Nondisplaced fracture of medial malleolus of right tibia, initial encounter for closed fracture (principal); S32.029A Unspecified fracture of second lumbar vertebra, initial encounter for closed fracture; S27.321A Contusion of lung, unilateral, initial encounter; M25.061 Hemarthrosis, right knee; S81.812A Laceration without foreign body, left lower leg, initial encounter; F31.81 Bipolar II disorder; S82.144A Nondisplaced bicondylar fracture of right tibia, initial encounter for closed fracture; V47.5XXA Car driver injured in collision with fixed or stationary object in traffic accident, initial encounter; Y92.410 Unspecified street and highway as the place of occurrence of the external cause; S20.01XA Contusion of right breast, initial encounter; K58.9 Irritable bowel syndrome, unspecified; E03.9 Hypothyroidism, unspecified; K21.9 Gastro-esophageal reflux disease without esophagitis; I25.10 Atherosclerotic heart disease of native coronary artery without angina pectoris; F41.9 Anxiety disorder, unspecified; F32.9 Major depressive disorder, single episode, unspecified; Z88.2 Allergy status to sulfonamides; Z88.8 Allergy status to other drugs, medicaments and biological substances; G89.11 Acute pain due to trauma; Z79.891 Long term (current) use of opiate analgesic; G89.29 Other chronic pain; M54.9 Dorsalgia, unspecified; S92.001A Unspecified fracture of right calcaneus, initial encounter for closed fracture; S82.401A Unspecified fracture of shaft of right fibula, initial encounter for closed fracture; Z23 Encounter for immunization
CPT/HCPCS: 12001; 27760; 36415; 51702; 70450; 71260; 72125; 74177; 80048; 80053; 80307; 83690; 85025; 85610; 85730; 86850; 86900; 86901; 87086; 90471; 90715; 93306; 93880; 96374; 96375; G0390; G8981-GP-CL; G8982-GP-CJ; G8987-GO-CM; G8988-GO-CK; J1650; J1885; J2001; J3010; J7620; S0028

== ENCOUNTER 2017-05-02 15:36 | Emergency (ER) | payer MEDICARE, MEDICAID ==
--- NOTE | 2017-05-02 16:40 | RAD ---
3 VIEWS RIGHT FOOT: Date: 05/02/17 COMPARISON: CT of right ankle dated 03/12/17. HISTORY: Fall at rehab with right foot pain. FINDINGS: No obvious acute displaced fracture or dislocation is seen. Mild diffuse soft tissue swelling is pres ent. There is a healing fracture and remodeling of the talus. IMPRESSION: 1. No evidence of acute osseous abnormality. 2. Healing fracture of the talus. POS: [facility]
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
[2017-05-02] MEDS ORDERED: Ketorolac Tromethamine 30 MG/ML VIAL ONE (17:21)
== END 2017-05-02 19:24 | disposition home or self-care (01) ==
LOC: ERS 15:36
DX: M79.671 Pain in right foot (principal); E03.9 Hypothyroidism, unspecified; K21.9 Gastro-esophageal reflux disease without esophagitis; I25.10 Atherosclerotic heart disease of native coronary artery without angina pectoris; F31.9 Bipolar disorder, unspecified; F41.9 Anxiety disorder, unspecified; W19.XXXA Unspecified fall, initial encounter
CPT/HCPCS: 96374; J1885

== ENCOUNTER 2017-05-23 11:25 | Emergency (ER) | payer MEDICARE, MEDICAID ==
[2017-05-23 12:13] LABS: #Eosinphils 0.1 thou/uL (0.0-0.7); #Lymphocytes 0.8 thou/uL (1.20-3.40); #Monocytes 0.4 thou/uL (0.11-0.59); #Neutrophils 2.8 thou/uL (1.40-6.50); %Basophils 0.7 % (0.0-1.0); %Eosinophils 2.5 % (0.0-10.0); %Lymphocytes 19.9 % (21.0-51.0); %Monocytes 8.6 % (0.0-10.0); %Neutrophils 68.3 % (42.0-75.0); Hemoglobin 11.1 g/dL (12.0-16.0); Mean Corpuscular HGB CONC 31.8 g/dL (32.0-36.0); Mean Corpuscular Hemoglobin 27.1 pg (27.0-31.0); Mean Corpuscular Volume 85.2 fl (81.0-99.0); Mean Platelet Volume 7.1 fL (7.4-10.4); Platelet Count 280 thou/uL (130-400); RBC Distribution Width 14.7 % (11.5-14.5); Red Blood Cell (RBC) Count 4.08 mill/uL (4.20-5.40); White Blood Cell (WBC) Count 4.1 thou/uL (4.8-10.8)
[2017-05-23 12:19] LABS: INR-International Normal Ratio 1.1; PTT 29.9 SEC (22.9-36.1); Prothrombin Time 14.1 SEC (12.0-14.7)
--- NOTE | 2017-05-23 12:23 | RAD ---
UPRIGHT PORTABLE CHEST ONE VIEW: History: 56-year-old female with history of chest pain. Comparison: 03-04-17 FINDINGS: Monitor leads overlie the chest. Heart size is within upper range of normal limits. Mild vascular con gestion, stable. No confluent pneumonia, overt edema or pleural effusion. IMPRESSION: Stable mild cardiomegaly and vascular congestion without overt edema or other acute process. No evide nce for pneumonia. POS: [facility]
[2017-05-23 12:35] LABS: ALT (SGPT) 18 U/L (8-55); AST (SGOT) 22 U/L (5-34); Albumin 3.7 g/dL (3.5-5.0); Alkaline Phosphatase 82 U/L (40-150); Anion Gap 11 mmol/L (10-20); BUN (Urea Nitrogen) 12 mg/dL (9.8-20.1); Bilirubin, Total 0.3 mg/dL (0.2-1.2); CK (CPK) 52 U/L (29-168); Calc. Creatinine Clearance 0 mL/min (70-130); Calcium 8.3 mg/dL (7.8-10.44); Carbon Dioxide 32 mmol/L (22-29); Chloride 102 mmol/L (98-107); Estimated GFR-MDRD 69; Globulin 3.3 g/dL (2.4-3.5); Glucose 98 mg/dL (70-105); Potassium 3.8 mmol/L (3.5-5.1); Sodium 141 mmol/L (136-145)
[2017-05-23 12:40] LABS: CKMB 1.1 ng/mL (0-6.6); Troponin I Less than 0.010 ng/mL (< 0.028)
== END 2017-05-23 14:35 | disposition home or self-care (01) ==
LOC: ERS 11:25
DX: R07.2 Precordial pain (principal); E03.9 Hypothyroidism, unspecified; K21.9 Gastro-esophageal reflux disease without esophagitis; I25.10 Atherosclerotic heart disease of native coronary artery without angina pectoris; M19.90 Unspecified osteoarthritis, unspecified site; F31.9 Bipolar disorder, unspecified; F41.9 Anxiety disorder, unspecified
CPT/HCPCS: 36415; 71045; 80053; 82550; 82553; 84484; 85025; 85610; 85730; 93005

== ENCOUNTER 2017-07-18 08:01 | Outpatient (CLI) | payer MEDICARE, MEDICAID ==
--- NOTE | 2017-07-18 09:00 | RAD ---
THREE VIEWS LEFT SMALL FINGER: Indication: Pain within the fifth digit. FINDINGS: There is a nondisplaced obliquely oriented fracture involving the radial condyle of the left small fi nger middle phalanx. No additional fracture is evident. IMPRESSION: Nondisplaced middle phalangeal head fracture of the left small digit. POS: [facility]
--- NOTE | 2017-07-18 09:03 | RAD ---
THREE VIEWS RIGHT ANKLE: Indication: Right ankle pain. FINDINGS: There has been some interval healing involving the medial malleolar, posterior lateral talar body and talar neck fractures when compared to the prior dated 03-12-17 and 05-02-17. No acute fracture is magaly dent. Soft tissue swelling persists. There is enthesopathic change off of the calcaneus that appears similar to the comparison exam. There is diffuse osteopenia involving the right foot and distal forel eg. IMPRESSION: 1. Some progressive healing of the right ankle and right foot fractures without evidence of acute oss eous abnormality. 2. Persistent enthesopathic change off the calcaneus. POS: [facility]
== END 2017-07-18 08:02 | disposition home or self-care (01) ==
LOC: RAD-FRANK 08:01
PROVIDERS: ATTEND Nurse Practitioner Family
DX: M25.571 Pain in right ankle and joints of right foot (principal); M79.645 Pain in left finger(s); S62.657A Nondisplaced fracture of middle phalanx of left little finger, initial encounter for closed fracture; S82.891D Other fracture of right lower leg, subsequent encounter for closed fracture with routine healing; S92.901D Unspecified fracture of right foot, subsequent encounter for fracture with routine healing

== ENCOUNTER 2017-11-03 10:58 | Emergency (ER) | payer MEDICARE, MEDICAID ==
[2017-11-03 11:49] LABS: #Basophils 0.1 thou/uL (0.0-0.2); #Eosinphils 0.1 thou/uL (0.0-0.7); #Lymphocytes 1.4 thou/uL (1.20-3.40); #Monocytes 0.5 thou/uL (0.11-0.59); #Neutrophils 3.6 thou/uL (1.40-6.50); %Basophils 1.1 % (0.0-1.0); %Eosinophils 2.1 % (0.0-10.0); %Lymphocytes 24.5 % (21.0-51.0); %Monocytes 8.8 % (0.0-10.0); %Neutrophils 63.6 % (42.0-75.0); Hemoglobin 11.4 g/dL (12.0-16.0); Mean Corpuscular HGB CONC 32.7 g/dL (32.0-36.0); Mean Corpuscular Hemoglobin 27.6 pg (27.0-31.0); Mean Corpuscular Volume 84.6 fL (78.0-98.0); Mean Platelet Volume 7.1 fL (7.4-10.4); Platelet Count 324 thou/uL (130-400); RBC Distribution Width 11.9 % (11.5-14.5); Red Blood Cell (RBC) Count 4.14 mill/uL (4.20-5.40); White Blood Cell (WBC) Count 5.6 thou/uL (4.8-10.8)
[2017-11-03 12:10] LABS: ALT (SGPT) 21 U/L (8-55); AST (SGOT) 21 U/L (5-34); Albumin 3.8 g/dL (3.5-5.0); Alkaline Phosphatase 93 U/L (40-150); Anion Gap 14 mmol/L (10-20); BUN (Urea Nitrogen) 21 mg/dL (9.8-20.1); Bilirubin, Total 0.3 mg/dL (0.2-1.2); Calc. Creatinine Clearance 0 mL/min (70-130); Calcium 8.6 mg/dL (7.8-10.44); Carbon Dioxide 29 mmol/L (22-29); Chloride 97 mmol/L (98-107); Estimated GFR-MDRD 65; Glucose 98 mg/dL (70-105); Lipase 35 U/L (8-78); Potassium 4.2 mmol/L (3.5-5.1); Protein, Total 7.8 g/dL (6.0-8.3); Sodium 136 mmol/L (136-145)
[2017-11-03 12:18] LABS: Bilirubin Negative (Negative); Blood, Urine Negative (Negative); Clarity CLOUDY (Clear); Glucose, Urine (Dipstick) Negative (Negative); Leukocyte Small (Negative); Nitrite Negative (Negative); Protein, Urine (Dipstick) Negative (Neg-Trace); Specific Gravity, Urine 1.008 (1.002-1.036); Urobilinogen 0.2 mg/dL (0.2-1.0)
[2017-11-03 12:20] LABS: Bacteria/HPF None Seen HPF (None Seen); Hyaline Casts/LPF 0-3 HYALINE CAST LPF (0-3 Hyaline); Pathc Cast-AUWi Flag 0.87 (0-2.49); RBC/HPF 0-3 HPF (0-3)
[2017-11-03] MEDS ORDERED: ISOVUE-370 76%-LOCM 1 ML ONE (13:31)
--- NOTE | 2017-11-03 13:46 | CT ---
CT ABDOMEN AND PELVIS WITH IV CONTRAST: Date: 11/03/17 HISTORY: Abdominal pain. FINDINGS: The pulmonary nodules in the lung bases are stable since 12/16/16. 4.0 cm cyst in the posterior segment of the right lobe of the liver is stable. Patient is post cholecystectomy and hysterectomy. The spleen, pancreas, adrenal glands, and kidneys are normal. No free air, free fluid, or lymphadenop athy seen in the abdomen or pelvis. An abnormal appendix is not seen. There is no evidence of aneurysmal dilatation of the abdominal aorta. There is sigmoid diverticulosis without diverticulitis. There are degenerative changes in the spine. IMPRESSION: No evidence of acute process. POS: [facility]
== END 2017-11-03 14:02 | disposition home or self-care (01) ==
LOC: ERS 10:58
DX: K52.9 Noninfective gastroenteritis and colitis, unspecified (principal); E03.9 Hypothyroidism, unspecified; K21.9 Gastro-esophageal reflux disease without esophagitis; I25.10 Atherosclerotic heart disease of native coronary artery without angina pectoris; F41.9 Anxiety disorder, unspecified; F31.9 Bipolar disorder, unspecified
CPT/HCPCS: 36415; 74177; 80053; 81003; 81015; 83690; 85025

== ENCOUNTER 2017-11-15 12:47 | Outpatient (CLI) | payer MEDICARE, MEDICAID ==
--- NOTE | 2017-11-15 13:54 | PRG ---
DATE OF SERVICE: 11/15/2017 HISTORY: Ms. Faith Angela is a very pleasant 57-year-old who presents to the [facility] for ev aluation of an ulceration of the right anterior lower leg. The patient was last seen in the Wound Ce nter on 08/31/2016 also for an ulceration of the right lower leg. The patient states she has been dr essing her wound with Santyl, 4 x 4s and Coban. The patient has no other complaints today. She brigitte es any fever or chills. PHYSICAL EXAMINATION: VITAL SIGNS: Temperature 97.8, pulse 81, respirations 20, blood pressure 148/70. EXTREMITIES: The ulceration of the right anterior lower leg measures approximately 1.0 x 1.2 cm. Gr anulation tissue is present within the wound margins. Necrotic and nonviable tissue present within t he wound margins was debrided with an excisional full-thickness debridement with the use of a curette . No purulent drainage is associated with the wound. No cellulitis of the right lower leg is apprec iated. No maceration of the skin of the periwound is noted. A dorsalis pedis pulse is palpable on t he right. A posterior tibial pulse is also palpable on the right. Edema of the right lower leg is p resent on exam today. Discoloration of the skin of the right lower leg is also present secondary to hemosiderin deposition. ASSESSMENT AND PLAN: 1. Chronic venous hypertension with ulcer. Silverlon, Webril, and the 3M Coban 2-layer compression system will be applied to the ulceration today. I will see Ms. Angela again in 1 week. 2. Hypothyroidism. 3. Degenerative joint disease. 4. Gastroesophageal reflux disease.
== END 2017-11-15 12:48 | disposition home or self-care (01) ==
LOC: WCC 12:47
PROVIDERS: ATTEND Family Medicine
DX: I87.311 Chronic venous hypertension (idiopathic) with ulcer of right lower extremity (principal); L97.819 Non-pressure chronic ulcer of other part of right lower leg with unspecified severity; E03.9 Hypothyroidism, unspecified; M19.90 Unspecified osteoarthritis, unspecified site; K21.9 Gastro-esophageal reflux disease without esophagitis

== ENCOUNTER 2017-11-27 10:08 | Day surgery (SDC) | payer MEDICARE, MEDICAID ==
[2017-11-24 11:13] VITALS: BMI 47.0
[2017-11-27] MEDS ORDERED: PROPOFOL 200 MG/20 ML VIAL ONE (13:08)
[2017-11-27] MEDS ORDERED: Midazolam HCl 2 mg/2 ml Vial ONE (13:57)
--- NOTE | 2017-11-27 18:51 | OP ---
DATE OF PROCEDURE: 11/27/2017 PROCEDURE: Colonoscopy with snare polypectomy and biopsy. PREOPERATIVE DIAGNOSES: Chronic diarrhea and hematochezia. OPERATIVE NOTE: Informed consent was obtained from the patient. She was sedated with total intraven ous anesthesia. The rectal exam was performed and was normal. The preparation quality was good. Th e colonoscope was advanced to the terminal ileum without difficulty. The mucosa of the terminal ileu m was normal. The ileocecal valve and appendiceal orifice were clearly identified. Random biopsies to rule out microscopic colitis were obtained from the ascending colon and descending colon and trans verse colon. There was a prominent fold at the hepatic flexure which was slightly erythematous or ed ematous and biopsies were obtained from this site to rule out any neoplastic lesion. There was a 7 m m pedunculated polyp in the sigmoid colon with about 30 cm which was removed by snare cautery polypec jorge. The remainder of the colonic mucosa was normal. Retroflexed views in the rectum were unremark able. IMPRESSION: 1. A 7 mm pedunculated polyp removed from the sigmoid colon. 2. Slightly edematous and erythematous fold at the hepatic flexure, biopsied. 3. Otherwise unremarkable colonoscopy. Random biopsies were taken from the right and left colon to rule out microscopic colitis. RECOMMENDATIONS: 1. Await histopathology. 2. Surveillance depending on biopsy results. 3. Follow up in GI clinic.
== END 2017-11-27 15:45 | disposition home or self-care (01) ==
LOC: SDC 10:08
PROVIDERS: ATTEND Internal Medicine Gastroenterology
PROC: 0DBL8ZX Excision of Transverse Colon, Via Natural or Artificial Opening Endoscopic, Diagnostic (ICD-10-PCS; principal; 2017-11-27)
PROC: 0DBN8ZX Excision of Sigmoid Colon, Via Natural or Artificial Opening Endoscopic, Diagnostic (ICD-10-PCS; 2017-11-27)
DX: K92.1 Melena (principal); K63.5 Polyp of colon; K58.0 Irritable bowel syndrome with diarrhea; K21.9 Gastro-esophageal reflux disease without esophagitis; K58.1 Irritable bowel syndrome with constipation; F31.81 Bipolar II disorder; E55.9 Vitamin D deficiency, unspecified; F41.8 Other specified anxiety disorders; I25.2 Old myocardial infarction; G47.30 Sleep apnea, unspecified; E78.00 Pure hypercholesterolemia, unspecified; E07.9 Disorder of thyroid, unspecified; Z79.899 Other long term (current) drug therapy; Z88.2 Allergy status to sulfonamides; Z88.5 Allergy status to narcotic agent; Z88.1 Allergy status to other antibiotic agents
CPT/HCPCS: 88305; J2250; J2704

== ENCOUNTER 2017-11-29 14:13 | Outpatient (CLI) | payer MEDICARE, MEDICAID ==
[2017-11-29] MEDS ORDERED: Lidocaine 2% Jelly 5 ML TUBE ONE (16:00)
[2017-11-29] MEDS ORDERED: Sodium Chloride 0.9% 15 ML NEB ONE (16:00)
--- NOTE | 2017-11-29 17:24 | PRG ---
DATE OF SERVICE: 11/29/2017 HISTORY: Ms. Faith Angela is a very pleasant 57-year-old who [facility] for ev aluation of an ulceration of the right anterior lower leg. The patient was also seen for an ulcerati on of the right lower leg in 08/2016 here in the [facility]. Ms. Angela states that she has been d ressing her wound with Santyl, 4 x 4s, Kerlix, and an Bhavik bandage. The patient has no complaints tod ay. She denies any fever or chills. PHYSICAL EXAMINATION: VITAL SIGNS: Temperature 98.3, pulse 77, respirations 20, blood pressure 123/60. EXTREMITIES: The ulceration of the right anterior lower leg measures approximately 1.0 x 0.8 cm. Th e dimensions of the wound at the time of the patient's visit on 11/15/2017 were approximately 1.0 x 1 .2 cm. Granulation tissue was present within the wound margins. Necrotic and nonviable tissue prese nt within the wound margins was debrided with an excisional full-thickness debridement. No purulent drainage is associated with the wound. No cellulitis of the right lower leg is appreciated. No mace ration of the skin of the periwound is noted. A dorsalis pedis pulse is palpable on the right. No s ignificant edema of the right foot or lower leg is present on exam today. Discoloration of the skin of the right lower leg is present secondary to hemosiderin deposition. ASSESSMENT AND PLAN: 1. Chronic venous hypertension with ulcer. Dressing changes of Santyl, 4 x 4s, Kerlix, and an Bhavik b andage will be continued. These dressing changes are to be performed on a daily basis after cleansin g and irrigation. I will see Ms. Angela again in one week. 2. Hypothyroidism. 3. Degenerative joint disease. 4. Gastroesophageal reflux disease.
== END 2017-11-29 14:14 | disposition home or self-care (01) ==
LOC: WCC 14:13
PROVIDERS: ATTEND Family Medicine
DX: I87.311 Chronic venous hypertension (idiopathic) with ulcer of right lower extremity (principal); L97.919 Non-pressure chronic ulcer of unspecified part of right lower leg with unspecified severity; E03.9 Hypothyroidism, unspecified; M19.90 Unspecified osteoarthritis, unspecified site; K21.9 Gastro-esophageal reflux disease without esophagitis
CPT/HCPCS: 11042; A4218

== ENCOUNTER 2017-12-07 10:07 | Outpatient (CLI) | payer MEDICARE, MEDICAID ==
[2017-12-07] MEDS ORDERED: Lidocaine 2% Jelly 5 ML TUBE ONE (11:11)
[2017-12-07] MEDS ORDERED: Sodium Chloride 0.9% 15 ML NEB ONE (11:11)
--- NOTE | 2017-12-07 12:16 | PRG ---
DATE OF SERVICE: 12/07/2017 HISTORY: Ms. Faith Angela is a very pleasant 57-year-old who presents to the [facility] for evaluation of an ulceration of the right anterior lower leg. The patient states she has been dressin g her wound with Fibracol, 4 x 4s, Kerlix, and an Bhavik bandage. The patient has no complaints today. She denies any fever or chills. PHYSICAL EXAMINATION: VITAL SIGNS: Temperature 97.5, pulse 85, respirations 19, blood pressure 177/84. EXTREMITIES: The ulceration of the right anterior lower leg is still present. Granulation tissue is present within the wound margins. Necrotic and nonviable tissue present within the wound margins wa s debrided with an excisional full-thickness debridement with the use of scissors and a curette. No purulent drainage is associated with the wound. No cellulitis of the right lower leg is appreciated. No maceration of the skin of the periwound is noted. No significant edema of the right foot or low er leg is present on exam today. Discoloration of the skin of the right lower leg is present seconda ry to hemosiderin deposition. ASSESSMENT AND PLAN: 1. Chronic venous hypertension with ulcer. Fibracol, Webril, and 3M Coban 2-layer compression syste m will be applied to the ulceration today. The patient has been instructed to discontinue the compre ssion wrap in 7-10 days and begin dressing changes of Fibracol, 4 x 4s, Kerlix, and an Bhavik bandage if her wound is still present. She is to perform these dressing changes on a daily basis after cleansi ng and irrigation until the wound has healed completely. The patient understands and is in agreement with the preceding treatment plan. The patient has been reassured that the ulceration is healing wi thout complications or any signs of infection. Ms. Angela will be discharged from clinic today with followup on a p.r.n. basis. 2. Hypothyroidism. 3. Degenerative joint disease. 4. Gastroesophageal reflux disease.
== END 2017-12-07 10:08 | disposition home or self-care (01) ==
LOC: WCC 10:07
PROVIDERS: ATTEND Family Medicine
DX: I87.311 Chronic venous hypertension (idiopathic) with ulcer of right lower extremity (principal); E03.9 Hypothyroidism, unspecified; M19.90 Unspecified osteoarthritis, unspecified site; K21.9 Gastro-esophageal reflux disease without esophagitis

== ENCOUNTER 2017-12-21 12:27 | Outpatient (CLI) | payer MEDICARE, MEDICAID ==
--- NOTE | 2017-12-21 14:18 | PRG ---
DATE OF SERVICE: 12/21/2017 HISTORY: Ms. Faith Angela is a very pleasant 57-year-old who presents to the [facility] for evalu ation of an ulceration of the right anterior lower leg. The patient states that she has not been анна ssing her wound for approximately 2 weeks. Ms. Angela has no complaints today. She denies any fever or chills. OBJECTIVE: VITAL SIGNS: Temperature 97.6, pulse 80, respirations 19, blood pressure 147/66. EXTREMITIES: The ulceration of the right anterior lower leg has healed completely. ASSESSMENT AND PLAN: 1. Chronic venous hypertension with ulcer. As stated above, the ulceration has completely healed. Ms. Angela will be discharged from clinic today with followup on a p.r.n. basis. 2. Hypothyroidism. 3. Degenerative joint disease. 4. Gastroesophageal reflux disease.
== END 2017-12-21 12:28 | disposition home or self-care (01) ==
LOC: WCC 12:27
PROVIDERS: ATTEND Family Medicine
DX: I87.311 Chronic venous hypertension (idiopathic) with ulcer of right lower extremity (principal); L97.819 Non-pressure chronic ulcer of other part of right lower leg with unspecified severity; E03.9 Hypothyroidism, unspecified; M19.90 Unspecified osteoarthritis, unspecified site; K21.9 Gastro-esophageal reflux disease without esophagitis
CPT/HCPCS: 97602

== ENCOUNTER 2018-01-24 11:06 | Outpatient (CLI) | payer MEDICARE, MEDICAID ==
--- NOTE | 2018-01-24 12:54 | RAD ---
TWO VIEWS CHEST: Date: 01-24-18 Comparison: 05-23-17 History: Cough. FINDINGS: There is prominence of the cardiac silhouette, a stable finding. No pneumothorax, pleural fluid, foca l consolidation or alveolar edema. Lungs are hyperinflated, stable as well. IMPRESSION: Stable two view examination of the chest. No focal consolidation or alveolar edema. POS: [facility]
== END 2018-01-24 11:07 | disposition home or self-care (01) ==
LOC: RAD-FRANK 11:06
PROVIDERS: ATTEND Nurse Practitioner Family
DX: R05 Cough (principal)
CPT/HCPCS: 71046

== ENCOUNTER 2018-04-12 10:07 | Outpatient (CLI) | payer MEDICARE, MEDICAID ==
--- NOTE | 2018-04-12 10:55 | RAD ---
EXAM: ABDOMEN ONE VIEW: History: Abdominal pain. Comparison: Abdomen and pelvic CT scan, 11-03-17. FINDINGS: There are some lumbar spondylosis changes. No evidence for large or small bowel obstruction or overt calculus. IMPRESSION: Unremarkable KUB. POS: [facility]
== END 2018-04-12 10:08 | disposition home or self-care (01) ==
LOC: RAD-FRANK 10:07
PROVIDERS: ATTEND Nurse Practitioner Family
DX: R10.9 Unspecified abdominal pain (principal)
CPT/HCPCS: 74018

== ENCOUNTER 2018-05-07 14:00 | Outpatient (CLI) | payer MEDICARE, MEDICAID ==
--- NOTE | 2018-05-07 16:35 | RAD ---
PA AND LATERAL CHEST: Date: 05/07/18 HISTORY: Cough. COMPARISON: 01/24/18 study. FINDINGS: The heart size is borderline. There are atherosclerotic changes of the aorta. The lungs are clear of infiltrates. There are no signs of failure. IMPRESSION: Borderline to minimal cardiomegaly. POS: [facility]
== END 2018-05-07 14:01 | disposition home or self-care (01) ==
LOC: RAD-FRANK 14:00
PROVIDERS: ATTEND Nurse Practitioner Family
DX: R05 Cough (principal); I51.7 Cardiomegaly
CPT/HCPCS: 71046

== ENCOUNTER 2018-05-20 13:21 | Emergency (ER) | payer MEDICARE, MEDICAID ==
[2018-05-20] MEDS ORDERED: diphenhydrAMINE 50 MG/ML VIAL ONE (13:58)
[2018-05-20] MEDS ORDERED: Metoclopramide HCl 10 MG/2 ML VIAL ONE (13:58)
[2018-05-20 14:20] LABS: #Lymphocytes 0.3 thou/uL (1.20-3.40); #Monocytes 0.6 thou/uL (0.11-0.59); %Basophils 0.4 % (0.0-1.0); %Eosinophils 0.5 % (0.0-10.0); %Lymphocytes 2.8 % (21.0-51.0); %Neutrophils 89.4 % (42.0-75.0); Hemoglobin 12.3 g/dL (12.0-16.0); Mean Corpuscular HGB CONC 30.2 g/dL (32.0-36.0); Mean Corpuscular Hemoglobin 25.9 pg (27.0-31.0); Mean Corpuscular Volume 85.6 fL (78.0-98.0); Mean Platelet Volume 7.9 fL (7.4-10.4); Platelet Count 244 thou/uL (130-400); RBC Distribution Width 13.2 % (11.5-14.5); Red Blood Cell (RBC) Count 4.77 mill/uL (4.20-5.40); White Blood Cell (WBC) Count 8.9 thou/uL (4.8-10.8)
[2018-05-20 14:38] LABS: ALT (SGPT) 157 U/L (8-55); AST (SGOT) 255 U/L (5-34); Albumin 3.4 g/dL (3.5-5.0); Alkaline Phosphatase 95 U/L (40-150); Anion Gap 14 mmol/L (10-20); BUN (Urea Nitrogen) 25 mg/dL (9.8-20.1); Bilirubin, Total 0.5 mg/dL (0.2-1.2); Calc. Creatinine Clearance 0 mL/min (70-130); Calcium 7.8 mg/dL (7.8-10.44); Carbon Dioxide 29 mmol/L (22-29); Chloride 102 mmol/L (98-107); Estimated GFR-MDRD 74; Globulin 2.9 g/dL (2.4-3.5); Glucose 119 mg/dL (70-105); Lipase 39 U/L (8-78); Potassium 4.9 mmol/L (3.5-5.1); Protein, Total 6.3 g/dL (6.0-8.3); Sodium 140 mmol/L (136-145)
[2018-05-20] MEDS ORDERED: Ibuprofen 200 MG TAB ONE (15:49)
[2018-05-20 16:35] LABS: Bilirubin Negative (Negative); Blood, Urine Negative (Negative); Clarity CLEAR (Clear); Glucose, Urine (Dipstick) Negative (Negative); Leukocyte Negative (Negative); Nitrite Negative (Negative); Protein, Urine (Dipstick) Negative (Neg-Trace); Specific Gravity, Urine 1.022 (1.002-1.036); pH, Urine 6.5 (5.0-9.0)
[2018-05-20 16:51] LABS: HBSAg Index 0.38 S/CO (0-0.99); Hep B Surf Ag Non-Reactive S/CO (NonReactive)
[2018-05-20 16:52] LABS: Hep A IgM AB Non-Reactive (NonReactive); Hep A IgM S/CO 0.14 S/CO (0-0.79); Hep C IgG Ab Non-Reactive (NonReactive); Hep C Index 0.15 S/CO (0-0.79)
[2018-05-20 16:53] LABS: HBCM Index 0.05 S/CO (0-0.79); Hepatitis B Core IgM Abs Non-Reactive (NonReactive)
== END 2018-05-20 17:00 | disposition home or self-care (01) ==
LOC: ERS 13:21
DX: K52.9 Noninfective gastroenteritis and colitis, unspecified (principal); E03.9 Hypothyroidism, unspecified; I25.10 Atherosclerotic heart disease of native coronary artery without angina pectoris; F41.9 Anxiety disorder, unspecified; F31.9 Bipolar disorder, unspecified; E11.9 Type 2 diabetes mellitus without complications
CPT/HCPCS: 36415; 80053; 80074; 81003; 83605; 83690; 84484; 85025; 93005; 96365; 96366; 96375; J1200; J2765

== ENCOUNTER 2018-05-23 11:15 | Emergency (ER) | payer MEDICARE, MEDICAID ==
[~2018-05-23 11:15] MED LIST changes: -ISOVUE-370 76%-LOCM 1 ML ONE; +Iopamidol 370 76% 100 ML VIAL ONE
[2018-05-23 11:50] LABS: #Eosinphils 0.1 thou/uL (0.0-0.7); #Lymphocytes 0.9 thou/uL (1.20-3.40); #Monocytes 0.3 thou/uL (0.11-0.59); #Neutrophils 3.2 thou/uL (1.40-6.50); %Basophils 0.3 % (0.0-1.0); %Eosinophils 1.7 % (0.0-10.0); %Lymphocytes 20.5 % (21.0-51.0); %Monocytes 6.6 % (0.0-10.0); %Neutrophils 70.9 % (42.0-75.0); Hemoglobin 11.9 g/dL (12.0-16.0); Mean Corpuscular HGB CONC 31.1 g/dL (32.0-36.0); Mean Corpuscular Hemoglobin 26.4 pg (27.0-31.0); Mean Platelet Volume 7.5 fL (7.4-10.4); Platelet Count 274 thou/uL (130-400); RBC Distribution Width 13.4 % (11.5-14.5); Red Blood Cell (RBC) Count 4.52 mill/uL (4.20-5.40); White Blood Cell (WBC) Count 4.5 thou/uL (4.8-10.8)
[2018-05-23 12:22] LABS: ALT (SGPT) 48 U/L (8-55); AST (SGOT) 29 U/L (5-34); Albumin 3.3 g/dL (3.5-5.0); Alkaline Phosphatase 74 U/L (40-150); Anion Gap 12 mmol/L (10-20); BUN (Urea Nitrogen) 14 mg/dL (9.8-20.1); Bilirubin, Total 0.3 mg/dL (0.2-1.2); Calc. Creatinine Clearance 0 mL/min (70-130); Calcium 8.7 mg/dL (7.8-10.44); Carbon Dioxide 29 mmol/L (22-29); Chloride 99 mmol/L (98-107); Estimated GFR-MDRD 73; Globulin 3.3 g/dL (2.4-3.5); Glucose 80 mg/dL (70-105); Lipase 55 U/L (8-78); Protein, Total 6.6 g/dL (6.0-8.3); Sodium 136 mmol/L (136-145)
[2018-05-23 12:57] LABS: Bilirubin Small (Negative); Blood, Urine Negative (Negative); Clarity CLEAR (Clear); Glucose, Urine (Dipstick) Negative (Negative); Leukocyte Trace (Negative); Nitrite Negative (Negative); Protein, Urine (Dipstick) Negative (Neg-Trace); pH, Urine 6.5 (5.0-9.0)
[2018-05-23 12:58] LABS: Bacteria/HPF None Seen HPF (None Seen); Hyaline Casts/LPF 4-6 HYALINE CAST LPF (0-3 Hyaline); Pathc Cast-AUWi Flag 1.63 (0-2.49)
--- NOTE | 2018-05-23 13:29 | CT ---
CT OF THE ABDOMEN AND PELVIS WITH IV CONTRAST: DATE: 05/23/2018. PROVIDED CLINICAL HISTORY: Nausea, vomiting. FINDINGS: Comparison 11/03/2017. The visualized lung bases are free of significant opacity. The solid abdominal organs demonstrate a stable CT appearance. Changes of prior cholecystectomy are again seen. There is no bowel dilatation, inflammatory fat stranding, free fluid, or lymph node enlargement appar ent. No evidence for free air. The appendix appears normal. Changes of prior hysterectomy are seen . The osseous structures demonstrate no concerning osteoblastic or osteolytic lesions. IMPRESSION: No evidence for an acute process. POS: [facility]
== END 2018-05-23 14:09 | disposition home or self-care (01) ==
LOC: ERS 11:15
DX: R10.33 Periumbilical pain (principal); R11.2 Nausea with vomiting, unspecified; R19.7 Diarrhea, unspecified; E03.9 Hypothyroidism, unspecified; K21.9 Gastro-esophageal reflux disease without esophagitis; I25.10 Atherosclerotic heart disease of native coronary artery without angina pectoris; F41.9 Anxiety disorder, unspecified; F31.9 Bipolar disorder, unspecified; E11.9 Type 2 diabetes mellitus without complications; Z79.899 Other long term (current) drug therapy
CPT/HCPCS: 36415; 74177; 80053; 81003; 81015; 83690; 85025; 87086; Q9967

== ENCOUNTER 2018-06-12 08:16 | Day surgery (SDC) | payer MEDICARE, MEDICAID ==
[2018-06-11 08:47] VITALS: BMI 48.0
[2018-06-12] MEDS ORDERED: PROPOFOL 200 MG/20 ML VIAL ONE (14:36)
[2018-06-12] MEDS ORDERED: Lidocaine 1% PF 5 ML VIAL ONE (14:36)
--- NOTE | 2018-06-12 14:56 | OP ---
DATE OF PROCEDURE: 06/12/2018 PROCEDURE PERFORMED: Esophagogastroduodenoscopy with biopsy. PREOPERATIVE DIAGNOSES: Epigastric abdominal pain and chronic diarrhea. DESCRIPTION OF PROCEDURE: Informed consent was obtained from the patient. She was sedated with total intravenous anesthesia. The bite block was placed and the endoscope was advanced easily to the second portion of the duodenum and retroflexion was performed in the stomach. The esophagus was normal. The GE junction revealed a 2-cm hiatal hernia. The stomach had mild nonerosive erythematous gastritis in the antrum. Biopsies were obtained to rule out H pylori. There were scattered 3-to 5-mm benign-appearing polyps in the body of the stomach. Matt[employer] Specialist biopsies were obtained to rule out adenomatous-type polyps. The pylorus was normal, and the first and second portions of the duodenum were normal. Duodenal biopsies were taken to rule out celiac disease. IMPRESSION: 1. Mild nonerosive erythematous gastritis, biopsied to rule out Helicobacter pylori. 2. A 3-to 5-mm small gastric body benign polyps biopsied to rule out adenomatous polyps. 3. Otherwise, normal esophagogastroduodenoscopy. Duodenal biopsies obtained to rule out celiac disease. RECOMMENDATIONS: 1. Await histopathology. 2. Follow up in GI Clinic. This is scheduled for June 26 at 10:40 a.m. in 2 weeks. Job ID: [id number]
== END 2018-06-12 13:27 | disposition home or self-care (01) ==
LOC: SDC 08:16
PROVIDERS: ATTEND Internal Medicine Gastroenterology
PROC: 0DB98ZX Excision of Duodenum, Via Natural or Artificial Opening Endoscopic, Diagnostic (ICD-10-PCS; principal; 2018-06-12)
PROC: 0DB78ZX Excision of Stomach, Pylorus, Via Natural or Artificial Opening Endoscopic, Diagnostic (ICD-10-PCS; 2018-06-12)
DX: K52.9 Noninfective gastroenteritis and colitis, unspecified (principal); K29.70 Gastritis, unspecified, without bleeding; K31.7 Polyp of stomach and duodenum; K21.9 Gastro-esophageal reflux disease without esophagitis; E03.9 Hypothyroidism, unspecified; F31.9 Bipolar disorder, unspecified; F41.9 Anxiety disorder, unspecified; I25.2 Old myocardial infarction; E78.5 Hyperlipidemia, unspecified; G47.30 Sleep apnea, unspecified; Z79.899 Other long term (current) drug therapy; Z88.2 Allergy status to sulfonamides; Z88.5 Allergy status to narcotic agent; Z88.8 Allergy status to other drugs, medicaments and biological substances; Z91.018 Allergy to other foods
CPT/HCPCS: 88305; 88312

== ENCOUNTER 2018-06-14 09:37 | Day surgery (SDC) | payer MEDICARE, MEDICAID ==
[2018-06-13 15:41] VITALS: BMI 48.0
[2018-06-14] MEDS ORDERED: Neomycin-Polymyxin 1 ML AMP ONE (10:38)
[2018-06-14] MEDS ORDERED: Bupivacaine HCl 0.5%/Epinephrine 1:200,000/PF 30 ml Vial ONE (10:38)
[2018-06-14 10:56] LABS: Hemoglobin 11.5 g/dL (12.0-16.0); Mean Corpuscular HGB CONC 31.4 g/dL (32.0-36.0); Mean Corpuscular Hemoglobin 26.6 pg (27.0-31.0); Mean Corpuscular Volume 84.7 fL (78.0-98.0); Mean Platelet Volume 7.6 fL (7.4-10.4); Platelet Count 266 thou/uL (130-400); RBC Distribution Width 13.5 % (11.5-14.5); Red Blood Cell (RBC) Count 4.33 mill/uL (4.20-5.40); White Blood Cell (WBC) Count 5.1 thou/uL (4.8-10.8)
[2018-06-14] MEDS ORDERED: Clindamycin/D5W 900 mg/50 ml Premix Bag ONE (10:58)
[2018-06-14] MEDS ORDERED: Midazolam HCl 2 mg/2 ml Vial ONE (11:02)
[2018-06-14 11:17] LABS: Anion Gap 9 mmol/L (10-20); BUN (Urea Nitrogen) 18 mg/dL (9.8-20.1); Calc. Creatinine Clearance 148 mL/min (70-130); Calcium 8.7 mg/dL (7.8-10.44); Carbon Dioxide 35 mmol/L (22-29); Chloride 100 mmol/L (98-107); Estimated GFR-MDRD 63; Glucose 99 mg/dL (70-105); Potassium 3.8 mmol/L (3.5-5.1); Sodium 140 mmol/L (136-145)
[2018-06-14] MEDS ORDERED: Fentanyl 100 MCG/2 ML VIAL ONE ×2 (12:00→13:01)
[2018-06-14] MEDS ORDERED: PROPOFOL 200 MG/20 ML VIAL ONE (12:15)
[2018-06-14] MEDS ORDERED: Lidocaine 1% PF 5 ML VIAL ONE (12:15)
[2018-06-14] MEDS ORDERED: HYDROcodone/Acetaminophen 5/325 mg Tablet ONE (14:44)
--- NOTE | 2018-06-14 17:58 | OP ---
DATE OF PROCEDURE: 06/14/2018 PREOPERATIVE DIAGNOSIS: Painful mass in the radial base of the right hand at the base of the thenar eminence. POSTOPERATIVE DIAGNOSIS: Scar tissue at the base of the right hand with scarring around the flexor carpi radialis and around the median nerve with a spur on the volar aspect of the wrist. PROCEDURES PERFORMED: Excision of scar tissue of the right hand with removal of the spur from the palmar aspect of the wrist, carpal tunnel release with median neurolysis and release of the flexor carpi radialis tendon. ANESTHESIA: General. TECHNIQUE: The patient was given preoperative IV antibiotics, taken to the operating room, placed in supine position. Satisfactory general anesthesia was performed. The right hand and forearm were sterilely prepped and draped in the usual fashion. After exsanguination, tourniquet at the proximal right forearm was raised to 200 mmHg. A slightly oblique incision was made extending from the base of the thenar eminence down to the flexor crease of the wrist. Blunt dissection was made. There was significant scarring at the base of the thenar eminence, which was bluntly and sharply dissected and scar tissue was removed. Under the scar tissue in the volar aspect of the wrist, there was a spur protruding up from the volar aspect of the wrist. This was removed and smoothed down with a rongeur. The scar tissue also was found down the flexor carpi radialis tendon and scar tissue was removed from around the tendon to allow easy motion of the tendon. It also scarred down into the median nerve and neurolysis was performed. The wound was then copiously irrigated with antibiotic solution and closed using 3-0 Rapide. The wound was infiltrated with 0.5% Marcaine with epinephrine, 10 mL was used. Sterile dressing was applied. The patient was then awakened, extubated, and transferred to recovery room in stable condition. ESTIMATED BLOOD LOSS: None. COMPLICATIONS: None. TOURNIQUET TIME: 22 minutes. DISCHARGE MEDICATION: [place] 10 one every 6 hours as needed for pain, #40. FOLLOWUP: Follow up in my office in one week. Job ID: [id number]
--- NOTE | 2018-06-20 10:11 | PQF ---
[facility] POST DISCHARGE CLINICAL DOCUMENTATION IMPROVEMENT CLARIFICATION FORM l Todays Date: 06/19/18 l Patients Name ROGE MARY l l Admit Date 06/14/18 l Disch Date 06/14/18 Laser Print Operator Name Theodore Deleon Email: [email or web address] Cell: [phone] To be completed by Laser Print Operator: Present Clinical Indicators - Signs / Symptoms Results and Location in Medical Record [ ] Documentation of: [ ] [ ] Documentation of: [ ] [ ] Documentation of: [ ] [ ] Documentation of: [ ] [ ] Risks [ ] [ ] [ ] Treatment [ ] Scar tissue base of R hand Query for size of excised lesion with appropriate margins [ ] [ ] To be completed by Physician: AMDAEO JORGE The documentation in this patients record requires clarification to ensure coding compliance and accuracy. Check the appropriate box and include in your discharge summary. [ ] [ ] [ ] [ ] Please check this box if this does not apply to this patient [ ] Unable to determine [ ] Other diagnosis: Review the following information and exercise your independent professional judgment in responding to the clarification. Based upon the clinical findings, risk factors, and treatment, please clarify if you are treating one of the above probable or suspected diagnoses. Physician Signature: Date Time MTDD
== END 2018-06-14 15:40 | disposition home or self-care (01) ==
LOC: SDC 09:37
PROVIDERS: ATTEND Orthopaedic Surgery
PROC: 01N50ZZ Release Median Nerve, Open Approach (ICD-10-PCS; principal; 2018-06-14)
PROC: 0PBH0ZZ Excision of Right Radius, Open Approach (ICD-10-PCS; 2018-06-14)
PROC: 0HBFXZZ Excision of Right Hand Skin, External Approach (ICD-10-PCS; 2018-06-14)
DX: M77.8 Other enthesopathies, not elsewhere classified (principal); L90.5 Scar conditions and fibrosis of skin; M19.90 Unspecified osteoarthritis, unspecified site; F31.9 Bipolar disorder, unspecified; E03.9 Hypothyroidism, unspecified; G47.30 Sleep apnea, unspecified; F40.240 Claustrophobia; Z79.1 Long term (current) use of non-steroidal anti-inflammatories (NSAID); Z79.51 Long term (current) use of inhaled steroids; Z79.899 Other long term (current) drug therapy; Z88.1 Allergy status to other antibiotic agents; Z88.2 Allergy status to sulfonamides; Z88.5 Allergy status to narcotic agent; Z88.8 Allergy status to other drugs, medicaments and biological substances; Z91.018 Allergy to other foods; Z98.890 Other specified postprocedural states
CPT/HCPCS: 36415; 80048; 85027; J0670; J0690; J2001; J2250; J2704; J3010; J3490

== ENCOUNTER 2018-08-14 10:53 | Outpatient (CLI) | payer MEDICARE, MEDICAID ==
--- NOTE | 2018-08-14 12:58 | MMO ---
Bilateral MAMMO Bilat Screen [facility]CINDY. CLINICAL HISTORY: Patient is 58 years old and is seen for screening. The patient has the following family history of breast cancer: cousin gender unknown, at age 43. The patient has no personal history of cancer. VIEWS: The views performed were: bilateral craniocaudal with tomosynthesis and bilateral mediolateral oblique with tomosynthesis. FILMS COMPARED: The present examination has been compared to prior imaging studies performed at [facility] on 12/11/2015 and 02/28/2017. MAMMOGRAM FINDINGS: There are scattered fibroglandular densities. Finding 1: There are stable benign appearing calcifications seen in both breasts. Finding 2: Evidence for fat necrosis. There are no suspicious masses, suspicious calcifications, or new areas of architectural distortion. IMPRESSION: FINDING 1: STABLE CALCIFICATIONS IN BOTH BREASTS ARE BENIGN. FINDING 2: FINDINGS IN THE RIGHT BREAST ARE BENIGN. EVIDENCE FOR FAT NECROSIS. A ROUTINE FOLLOW-UP MAMMOGRAM IN 1 YEAR IS RECOMMENDED. THE RESULTS OF THIS EXAM WERE SENT TO THE PATIENT. ACR BI-RADS Category 2 - Benign finding MAMMOGRAPHY NOTE: 1. A negative mammogram report should not delay a biopsy if a dominant of clinically suspicious mass is present. 2. Approximately 10% to 15% of breast cancers are not detected by mammography. 3. Adenosis and dense breasts may obscure an underlying neoplasm.
== END 2018-08-14 10:54 | disposition home or self-care (01) ==
LOC: BICMAMMO 10:53
PROVIDERS: ATTEND Nurse Practitioner Family
DX: Z12.31 Encounter for screening mammogram for malignant neoplasm of breast (principal); R92.1 Mammographic calcification found on diagnostic imaging of breast; N64.1 Fat necrosis of breast; Z80.3 Family history of malignant neoplasm of breast
CPT/HCPCS: 77063; 77067

== ENCOUNTER 2018-10-15 08:11 | Outpatient (CLI) | payer MEDICARE, MEDICAID ==
--- NOTE | 2018-10-15 14:41 | NM ---
Exam: Nuclear medicine gastric attending scan HISTORY: Upper abdominal pain. Nausea. Bloating and vomiting. TECHNIQUE: Patient was administered 1.9 mCi of technetium 99m sulfur colloid orally in egg mixture FINDINGS: 0% emptying at 0 minutes 42% emptying at 33 minutes 66% emptying at 58 minutes 69% emptying at 124 minutes 80% emptying at 170 minutes 99% emptying at 249 minutes T1 half time: T1 half-time is 41 minutes IMPRESSION: T1 half-time of 41 minutes, which is within normal limits.
== END 2018-10-15 08:12 | disposition home or self-care (01) ==
LOC: NM 08:11
PROVIDERS: ATTEND Physician Assistant Medical
DX: K21.9 Gastro-esophageal reflux disease without esophagitis (principal); R10.10 Upper abdominal pain, unspecified; R11.0 Nausea
CPT/HCPCS: 78264; A9541

== ENCOUNTER 2018-10-16 16:29 | Outpatient (CLI) | payer MEDICARE, MEDICAID ==
--- NOTE | 2018-10-16 17:35 | RAD ---
RIGHT ANKLE THREE VIEWS: HISTORY: Pain. COMPARISON: 07/18/2017 FINDINGS: There is soft tissue swelling at the ankle, prominent laterally. Degenerative changes at the ankle. No acute fracture identified. Ankle findings appear stable from prior exam. Slight deformity of th e medial malleolus may represent old fracture, but this is a stable finding from the prior study. IMPRESSION: Soft tissue swelling and degenerative changes at the ankle, as described. POS: [facility]
== END 2018-10-16 16:30 | disposition home or self-care (01) ==
LOC: RAD-FRANK 16:29
PROVIDERS: ATTEND Nurse Practitioner Family
DX: M25.571 Pain in right ankle and joints of right foot (principal); M79.89 Other specified soft tissue disorders; M19.071 Primary osteoarthritis, right ankle and foot

== ENCOUNTER 2018-11-08 16:31 | Emergency (ER) | payer MEDICARE, MEDICAID ==
[2018-11-08] MEDS ORDERED: Acetaminophen 500 MG TAB ONE (17:13)
--- NOTE | 2018-11-08 17:44 | CT ---
CT BRAIN NONCONTRAST: DATE: 11/08/2018 HISTORY: 58-year-old female with posttraumatic headache and lightheadedness FINDINGS: There is no evidence of acute intra-axial or extra-axial hemorrhage. There is no midline shift or any other mass effect. There is no extra-axial fluid collection. There is no evidence of obstructive hydrocephalus. Calvarium is intact. IMPRESSION: No acute intracranial findings.
[2018-11-08] MEDS ORDERED: Adacel (T-DAP) 0.5 ML SYRINGE ONE (17:57)
--- NOTE | 2018-11-08 18:05 | RAD ---
Radiograph left humerus 2 views: HISTORY: 58-year-old female status post traumatic injury to arm FINDINGS: No fracture or any other major osseous abnormality of humerus IMPRESSION: Negative
[2018-11-08 18:23] LABS: #Basophils 0.1 thou/uL (0.0-0.2); #Eosinphils 0.1 thou/uL (0.0-0.7); #Lymphocytes 1.4 thou/uL (1.20-3.40); #Monocytes 0.6 thou/uL (0.11-0.59); #Neutrophils 3.8 thou/uL (1.40-6.50); %Basophils 0.9 % (0.0-1.0); %Eosinophils 1.7 % (0.0-10.0); %Lymphocytes 23.7 % (21.0-51.0); %Monocytes 9.8 % (0.0-10.0); %Neutrophils 63.9 % (42.0-75.0); Hemoglobin 11.9 g/dL (12.0-16.0); Mean Corpuscular HGB CONC 33.2 g/dL (32.0-36.0); Mean Corpuscular Hemoglobin 28.5 pg (27.0-31.0); Mean Corpuscular Volume 85.8 fL (78.0-98.0); Platelet Count 247 thou/uL (130-400); RBC Distribution Width 13.6 % (11.5-14.5)
[2018-11-08 18:40] LABS: ALT (SGPT) 13 U/L (8-55); AST (SGOT) 18 U/L (5-34); Albumin 3.8 g/dL (3.5-5.0); Alkaline Phosphatase 111 U/L (40-150); Anion Gap 14 mmol/L (10-20); BUN (Urea Nitrogen) 18 mg/dL (9.8-20.1); Bilirubin, Total 0.5 mg/dL (0.2-1.2); Calc. Creatinine Clearance 0 mL/min (70-130); Calcium 8.7 mg/dL (7.8-10.44); Carbon Dioxide 30 mmol/L (22-29); Chloride 98 mmol/L (98-107); Estimated GFR-MDRD 62; Globulin 2.8 g/dL (2.4-3.5); Glucose 115 mg/dL (70-105); Potassium 4.1 mmol/L (3.5-5.1); Protein, Total 6.6 g/dL (6.0-8.3); Sodium 138 mmol/L (136-145)
== END 2018-11-08 18:56 | disposition home or self-care (01) ==
LOC: ERS 16:31
DX: S51.812A Laceration without foreign body of left forearm, initial encounter (principal); S41.112A Laceration without foreign body of left upper arm, initial encounter; E03.9 Hypothyroidism, unspecified; K21.9 Gastro-esophageal reflux disease without esophagitis; I25.10 Atherosclerotic heart disease of native coronary artery without angina pectoris; M19.90 Unspecified osteoarthritis, unspecified site; F41.9 Anxiety disorder, unspecified; F31.81 Bipolar II disorder; Z23 Encounter for immunization; W06.XXXA Fall from bed, initial encounter
CPT/HCPCS: 36415; 70450; 80053; 84484; 85025; 90471; 90715; 93005

== ENCOUNTER 2019-01-31 08:51 | Day surgery (SDC) | payer MEDICARE, MEDICAID ==
[2019-01-30 10:08] VITALS: BMI 43.8
[2019-01-31 09:31] LABS: Hemoglobin 13.3 g/dL (12.0-16.0); Mean Corpuscular HGB CONC 32.6 g/dL (32.0-36.0); Mean Corpuscular Hemoglobin 28.9 pg (27.0-31.0); Mean Corpuscular Volume 88.6 fL (78.0-98.0); Platelet Count 236 thou/uL (130-400); RBC Distribution Width 12.6 % (11.5-14.5); Red Blood Cell (RBC) Count 4.62 mill/uL (4.20-5.40); White Blood Cell (WBC) Count 4.5 thou/uL (4.8-10.8)
[2019-01-31 10:38] LABS: Anion Gap 11 mmol/L (10-20); BUN (Urea Nitrogen) 17 mg/dL (9.8-20.1); Calc. Creatinine Clearance 154 mL/min (70-130); Calcium 8.6 mg/dL (7.8-10.44); Carbon Dioxide 30 mmol/L (22-29); Chloride 104 mmol/L (98-107); Estimated GFR-MDRD 74; Glucose 99 mg/dL (70-105); Potassium 3.9 mmol/L (3.5-5.1); Sodium 141 mmol/L (136-145)
[2019-01-31] MEDS ORDERED: PROPOFOL 200 MG/20 ML VIAL ONE (10:41)
[2019-01-31] MEDS ORDERED: Ondansetron PF 4 MG/2 ML Vial ONE (10:41)
[2019-01-31] MEDS ORDERED: Lidocaine 1% PF 5 ML VIAL ONE (10:41)
[2019-01-31] MEDS ORDERED: Fentanyl 100 MCG/2 ML VIAL ONE (11:09)
[2019-01-31] MEDS ORDERED: Midazolam HCl 2 mg/2 ml Vial ONE ×2 (11:09→11:16)
[2019-01-31] MEDS ORDERED: Lidocaine 1% w/Epinephrine 1:100K 20 ML VIAL ONE (11:27)
[2019-01-31] MEDS ORDERED: Bupivacaine PF 0.5% 30 ML VIAL ONE (11:27)
[2019-01-31] MEDS ORDERED: Clindamycin/D5W 600 mg/50 ml Premix Bag ONE (11:49)
[2019-01-31] MEDS ORDERED: Bupivacaine 0.25% HCL 30 ML VIAL ONE (13:05)
[2019-01-31] MEDS ORDERED: Ketorolac Tromethamine 30 MG/ML VIAL ONE (13:10)
--- NOTE | 2019-01-31 18:17 | OP ---
DATE OF PROCEDURE: 01/31/2019 PREOPERATIVE DIAGNOSIS: Painful mass on the palmar aspect of the right hand at the base of the thenar eminence. POSTOPERATIVE DIAGNOSIS: Painful scar tissue on the volar aspect of the right hand in the area of the base of the thenar eminence. PROCEDURE PERFORMED: Excision of scar tissue on the volar aspect of the right palm. ANESTHESIA: General. DESCRIPTION OF PROCEDURE: The patient was given preoperative IV antibiotics, taken to the operating room, placed in supine position. Satisfactory general anesthesia was performed. The right hand and distal forearm were sterilely prepped and draped. After exsanguination, tourniquet at the proximal right forearm was raised to 200 mmHg. A longitudinal incision was made over the palmar radial aspect of the right palm at the base of the thenar eminence. There was a very thick scar tissue over the flexor carpi radialis tendon. The underlying flexor carpi radialis tendon had some adhesions, which were excised as well. There was some fraying of the tendon, but the great majority of the tendon appeared healthy. The scar tissue was removed from around the flexor carpi radialis tendon and wound was then irrigated with normal saline and closed using 3-0 Rapide. The wound was then infiltrated with 10 mL of 0.25% Marcaine plain. Sterile dressing was applied. The tourniquet was released. The patient was awakened, extubated, and transferred to recovery room in stable condition. ESTIMATED BLOOD LOSS: None. COMPLICATIONS: None. TOURNIQUET TIME: 17 minutes. DISCHARGE MEDICATION: [place] 10 one every 4 to 6 hours as needed for pain, #40. FOLLOWUP: Follow in my office in one week. Job ID: [id number]
--- NOTE | 2019-02-03 14:21 | EKG ---
Test Reason : PREOP Blood Pressure : / mmHG Vent. Rate : 074 BPM Atrial Rate : 074 BPM P-R Int : 170 ms QRS Dur : 096 ms QT Int : 408 ms P-R-T Axes : 065 -10 050 degrees QTc Int : 452 ms Normal sinus rhythm Normal ECG No previous ECGs available Confirmed by KENRICK GOODRICH (2) on 02/03/2019 2:21:37 PM Referred By: JUAN Confirmed By:KENRICK GOODRICH
--- NOTE | 2019-02-04 06:02 | PQF ---
[facility] POST DISCHARGE CLINICAL DOCUMENTATION IMPROVEMENT CLARIFICATION FORM l Todays Date: 02/04/19 l Patients Name ROGE MARY l l Admit Date 01/31/19 l Disch Date 01/31/19 [employer] Savings Securities Trader Name Maryan Londono Email: Cell: [phone] To be completed by [employer] Trader: Present Clinical Indicators - Signs / Symptoms Results and Location in Medical Record [ ] Documentation of: [ ] [ ] Documentation of: [ ] [ ] Documentation of: [ ] [ ] Documentation of: [ ] [ ] Risks [ ] [ ] [ ] Treatment [ ] Need to verify margin and excision size of scar tissue. Excision of scar tissue on the volar aspect of the right palm. [ ] [ ] To be completed by Physician: AMADEO JORGE The documentation in this patients record requires clarification to ensure coding compliance and accuracy. Check the appropriate box and include in your discharge summary. [ ] [ ] [ ] [ ] Please check this box if this does not apply to this patient [ ] Unable to determine [ ] Other diagnosis: Review the following information and exercise your independent professional judgment in responding to the clarification. Based upon the clinical findings, risk factors, and treatment, please clarify if you are treating one of the above probable or suspected diagnoses. Physician Signature: Date Time MTDD
== END 2019-01-31 14:33 | disposition home or self-care (01) ==
LOC: SDC 08:51
PROVIDERS: ATTEND Orthopaedic Surgery
DX: L90.5 Scar conditions and fibrosis of skin (principal); E03.9 Hypothyroidism, unspecified; M19.90 Unspecified osteoarthritis, unspecified site; Z79.899 Other long term (current) drug therapy; Z88.2 Allergy status to sulfonamides; Z88.5 Allergy status to narcotic agent; Z88.8 Allergy status to other drugs, medicaments and biological substances; Z91.018 Allergy to other foods; Z88.1 Allergy status to other antibiotic agents
CPT/HCPCS: 36415; 80048; 85027; 93005; 93010; J0690; J1885; J2001; J2250; J2405; J2704; J3010; J3490; S0020

== ENCOUNTER 2019-02-13 09:03 | Emergency (ER) | payer MEDICARE, MEDICAID | END 2019-02-13 10:06 | disposition home or self-care (01) | LOC: ERS 09:03 | DX: S16.1XXA Strain of muscle, fascia and tendon at neck level, initial encounter (principal); V43.52XA Car driver injured in collision with other type car in traffic accident, initial encounter | CPT/HCPCS: 99283 ==

== ENCOUNTER 2019-03-11 12:06 | Emergency (ER) | payer MEDICARE, MEDICAID ==
[2019-03-11 13:38] LABS: #Basophils 0.1 thou/uL (0.0-0.2); #Eosinphils 0.2 thou/uL (0.0-0.7); #Lymphocytes 1.3 thou/uL (1.20-3.40); #Monocytes 0.5 thou/uL (0.11-0.59); %Basophils 0.9 % (0.0-1.0); %Eosinophils 3.1 % (0.0-10.0); %Lymphocytes 20.9 % (21.0-51.0); %Monocytes 7.9 % (0.0-10.0); %Neutrophils 67.2 % (42.0-75.0); Hemoglobin 13.7 g/dL (12.0-16.0); Mean Corpuscular HGB CONC 33.5 g/dL (32.0-36.0); Mean Corpuscular Hemoglobin 29.9 pg (27.0-31.0); Mean Corpuscular Volume 89.4 fL (78.0-98.0); Mean Platelet Volume 7.7 fL (7.4-10.4); Platelet Count 228 thou/uL (130-400); RBC Distribution Width 12.1 % (11.5-14.5); Red Blood Cell (RBC) Count 4.58 mill/uL (4.20-5.40)
[2019-03-11 14:06] LABS: ALT (SGPT) 20 U/L (8-55); AST (SGOT) 21 U/L (5-34); Albumin 3.8 g/dL (3.5-5.0); Alkaline Phosphatase 95 U/L (40-110); Anion Gap 10 mmol/L (10-20); BUN (Urea Nitrogen) 11 mg/dL (9.8-20.1); Bilirubin, Total 0.5 mg/dL (0.2-1.2); CK (CPK) 43 U/L (29-168); Calc. Creatinine Clearance 0 mL/min (70-130); Calcium 8.6 mg/dL (7.8-10.44); Carbon Dioxide 29 mmol/L (22-29); Chloride 105 mmol/L (98-107); Estimated GFR-MDRD 68; Globulin 2.6 g/dL (2.4-3.5); Glucose 103 mg/dL (70-105); Potassium 4.2 mmol/L (3.5-5.1); Protein, Total 6.4 g/dL (6.0-8.3); Sodium 140 mmol/L (136-145)
--- NOTE | 2019-03-11 15:10 | CT ---
CT ABDOMEN AND PELVIS WITH IV CONTRAST 03/11/2019 CLINICAL INFORMATION: Weakness with nausea and diarrhea. Coughing. COMPARISON: 05/23/2018 Technique: Multiple contiguous axial CT images are obtained through the abdomen and pelvis with IV contrast. Cor onal reformatted images are provided. FINDINGS: Lower Chest: There are stable scattered pleural-based nodular densities as well as pulmonary nodules at each lung base. These pulmonary nodules and pleural-based nodular densities are stable dating back to study in 2016. Vessels: The abdominal aorta is normal in caliber without evidence of an aortic dissection. Abdomen: Portal vein:Patent Gallbladder: Surgically absent. Liver: A stable right hepatic lobe cyst is again seen. Spleen: within normal limits. Pancreas: within normal limits. Adrenals: within normal limits. Kidneys: within normal limits. Bowel: Normal caliber. Appendix: Not visualized. However, no secondary signs to suggest appendicitis are seen. Peritoneum: No ascites or free air; no fluid collection. Mesentery and Retroperitoneum: No enlarged mesenteric or retroperitoneal lymph nodes. Abdominal Wall: within normal limits. Pelvis: Reproductive Organs: Evidence of hysterectomy. Pelvis within normal limits. Bladder: within normal limits. Bones: Degenerative changes are seen in the spine. IMPRESSION: 1. No acute findings are seen in the abdomen or pelvis. 2. Stable nodular densities at each lung base which are unchanged dating back to study in 2016. 3. Stable right hepatic lobe cyst. 4. Post surgical changes related to cholecystectomy and hysterectomy.
[2019-03-11] MEDS ORDERED: Ondansetron PF 4 MG/2 ML Vial ONE (15:28)
[2019-03-11 15:34] LABS: Bilirubin Negative (Negative); Blood, Urine Negative (Negative); Clarity Clear (Clear); Glucose, Urine (Dipstick) Normal (Negative); Leukocyte Negative Leu/uL (Negative); Nitrite Negative (Negative); Protein, Urine (Dipstick) Negative (Neg-Trace); Urobilinogen Normal mg/dL (Less than 2)
== END 2019-03-11 17:56 | disposition home or self-care (01) ==
LOC: ERS 12:06
DX: R10.9 Unspecified abdominal pain (principal); I10 Essential (primary) hypertension; F31.81 Bipolar II disorder; Z79.899 Other long term (current) drug therapy
CPT/HCPCS: 36415; 74177; 80053; 81003; 82550; 84484; 85025; 87045; 87046; 87324; 87427; 87449; 93005; 96361; 96374; J2405

== ENCOUNTER 2019-04-15 14:44 | Emergency (ER) | payer MEDICARE, MEDICAID ==
[2019-04-15 15:16] LABS: #Basophils 0.1 thou/uL (0.0-0.2); #Eosinphils 0.1 thou/uL (0.0-0.7); #Lymphocytes 1.1 thou/uL (1.20-3.40); #Monocytes 0.4 thou/uL (0.11-0.59); #Neutrophils 3.6 thou/uL (1.40-6.50); %Eosinophils 2.3 % (0.0-10.0); %Lymphocytes 21.2 % (21.0-51.0); %Monocytes 8.3 % (0.0-10.0); %Neutrophils 67.2 % (42.0-75.0); Hemoglobin 13.8 g/dL (12.0-16.0); Mean Corpuscular HGB CONC 32.6 g/dL (32.0-36.0); Mean Corpuscular Hemoglobin 29.7 pg (27.0-31.0); Mean Platelet Volume 7.8 fL (7.4-10.4); Platelet Count 254 thou/uL (130-400); RBC Distribution Width 11.2 % (11.5-14.5); Red Blood Cell (RBC) Count 4.64 mill/uL (4.20-5.40); White Blood Cell (WBC) Count 5.3 thou/uL (4.8-10.8)
[2019-04-15 15:38] LABS: ALT (SGPT) 14 U/L (8-55); AST (SGOT) 17 U/L (5-34); Albumin 4.2 g/dL (3.5-5.0); Alkaline Phosphatase 104 U/L (40-110); Anion Gap 9 mmol/L (10-20); BUN (Urea Nitrogen) 14 mg/dL (9.8-20.1); Bilirubin, Total 0.6 mg/dL (0.2-1.2); Calc. Creatinine Clearance 0 mL/min (70-130); Calcium 8.1 mg/dL (7.8-10.44); Carbon Dioxide 30 mmol/L (22-29); Chloride 104 mmol/L (98-107); Estimated GFR-MDRD 77; Globulin 2.7 g/dL (2.4-3.5); Glucose 94 mg/dL (70-105); Potassium 3.8 mmol/L (3.5-5.1); Protein, Total 6.9 g/dL (6.0-8.3); Sodium 139 mmol/L (136-145)
--- NOTE | 2019-04-15 16:13 | RAD ---
PORTABLE CHEST: Date: 04-15-2019 Time: 12:45 p.m. History: Shortness of breath, dizziness. FINDINGS: Comparison made with exam 06-09-17. The heart size is normal. The aorta is tortuous. The lungs are expanded without focal areas of consol idation, pneumothoraces or pleural effusions. IMPRESSION: No acute process. POS: [facility]
== END 2019-04-15 16:51 | disposition home or self-care (01) ==
LOC: ERS 14:44
DX: J20.9 Acute bronchitis, unspecified (principal)
CPT/HCPCS: 36415; 71045; 80053; 84484; 85025; 93005; 94760

== ENCOUNTER 2020-07-02 07:39 | Outpatient (CLI) | payer MEDICARE, OTHER ==
[2020-07-02] MEDS ORDERED: Iopamidol 370 76% 100 ML VIAL ONE (12:02)
== END 2020-07-02 07:40 | disposition home or self-care (01) ==
LOC: CT 07:39
PROVIDERS: ATTEND Physician Assistant Medical
DX: R10.11 Right upper quadrant pain (principal); R19.7 Diarrhea, unspecified; J98.4 Other disorders of lung; K76.0 Fatty (change of) liver, not elsewhere classified; K76.89 Other specified diseases of liver; Z90.49 Acquired absence of other specified parts of digestive tract; Z90.710 Acquired absence of both cervix and uterus
CPT/HCPCS: 74177; 82565; Q9967

== ENCOUNTER 2020-08-03 16:22 | Outpatient (CLI) | payer MEDICARE, MEDICAID | END 2020-08-03 16:23 | disposition home or self-care (01) | LOC: RAD-FRANK 16:22 | PROVIDERS: ATTEND Nurse Practitioner Family | DX: R06.02 Shortness of breath (principal) | CPT/HCPCS: 71046 ==

== ENCOUNTER 2021-01-14 09:26 | Outpatient (CLI) | payer MEDICARE, OTHER | END 2021-01-14 09:27 | disposition home or self-care (01) | LOC: BICMAMMO 09:26 | PROVIDERS: ATTEND Nurse Practitioner Family | DX: Z12.31 Encounter for screening mammogram for malignant neoplasm of breast (principal); Z80.3 Family history of malignant neoplasm of breast; R92.1 Mammographic calcification found on diagnostic imaging of breast | CPT/HCPCS: 77063; 77067 ==

== ENCOUNTER 2021-01-18 14:13 | Outpatient (CLI) | payer MEDICARE, OTHER | END 2021-01-18 14:14 | disposition home or self-care (01) | LOC: BICMAMMO 14:13 | PROVIDERS: ATTEND Nurse Practitioner Family | DX: R92.1 Mammographic calcification found on diagnostic imaging of breast (principal) | CPT/HCPCS: 77065; G0279 ==

== ENCOUNTER 2021-04-05 08:28 | Day surgery (SDC) | payer MEDICARE, OTHER ==
[2021-03-25 09:47] VITALS: BMI 47.7
[2021-04-05] MEDS ORDERED: Ketamine 50 MG/ML (10ML VIAL) ONE (09:17)
[2021-04-05] MEDS ORDERED: Midazolam HCl 2 mg/2 ml Vial ONE (09:21)
[2021-04-05] MEDS ORDERED: Lidocaine 1% PF 5 ML VIAL ONE (09:30)
[2021-04-05] MEDS ORDERED: PROPOFOL 200 MG/20 ML VIAL ONE (09:30)
== END 2021-04-05 11:35 | disposition home or self-care (01) ==
LOC: SDC 08:28
PROVIDERS: ATTEND Internal Medicine Gastroenterology
PROC: 0DB98ZX Excision of Duodenum, Via Natural or Artificial Opening Endoscopic, Diagnostic (ICD-10-PCS; principal; 2021-04-05)
PROC: 0DBG8ZX Excision of Left Large Intestine, Via Natural or Artificial Opening Endoscopic, Diagnostic (ICD-10-PCS; 2021-04-05)
PROC: 0DBF8ZX Excision of Right Large Intestine, Via Natural or Artificial Opening Endoscopic, Diagnostic (ICD-10-PCS; 2021-04-05)
DX: K52.9 Noninfective gastroenteritis and colitis, unspecified (principal); R10.13 Epigastric pain; R10.33 Periumbilical pain; G47.33 Obstructive sleep apnea (adult) (pediatric); E78.5 Hyperlipidemia, unspecified; E03.9 Hypothyroidism, unspecified; M19.90 Unspecified osteoarthritis, unspecified site; I25.10 Atherosclerotic heart disease of native coronary artery without angina pectoris; I25.2 Old myocardial infarction; Z79.899 Other long term (current) drug therapy; Z88.1 Allergy status to other antibiotic agents; Z88.2 Allergy status to sulfonamides; Z88.5 Allergy status to narcotic agent; Z88.8 Allergy status to other drugs, medicaments and biological substances; Z91.018 Allergy to other foods
CPT/HCPCS: 88305; J2250; J2704

== ENCOUNTER 2021-10-18 17:40 | Inpatient (IN) | payer OTHER, MEDICAID ==
[2021-10-18 21:01] LABS: #Basophils 0.1 thou/uL (0.0-0.2); #Eosinphils 0.2 thou/uL (0.0-0.7); #Lymphocytes 1.2 thou/uL (1.20-3.40); #Monocytes 0.4 thou/uL (0.11-0.59); #Neutrophils 4.1 thou/uL (1.40-6.50); %Basophils 1.1 % (0.0-1.0); %Eosinophils 2.8 % (0.0-10.0); %Lymphocytes 20.5 % (21.0-51.0); %Monocytes 6.7 % (0.0-10.0); Hemoglobin 13.4 g/dL (12.0-16.0); Mean Corpuscular HGB CONC 32.4 g/dL (32.0-36.0); Mean Corpuscular Hemoglobin 31.8 pg (27.0-31.0); Mean Corpuscular Volume 98.3 fL (78.0-98.0); Mean Platelet Volume 7.5 fL (7.4-10.4); Platelet Count 270 thou/uL (130-400); Red Blood Cell (RBC) Count 4.22 mill/uL (4.20-5.40); White Blood Cell (WBC) Count 5.9 thou/uL (4.8-10.8)
[2021-10-18] MEDS ORDERED: Piperacillin/Tazobactam 4.5 GM VIAL ONE (21:10)
[2021-10-18 21:21] LABS: ALT (SGPT) 22 U/L (8-55); AST (SGOT) 27 U/L (5-34); Alkaline Phosphatase 75 U/L (40-110); Anion Gap 14 mmol/L (10-20); BUN (Urea Nitrogen) 15 mg/dL (9.8-20.1); Bilirubin, Total 0.5 mg/dL (0.2-1.2); Calc. Creatinine Clearance 0 mL/min (70-130); Calcium 9.4 mg/dL (7.8-10.44); Carbon Dioxide 30 mmol/L (23-31); Chloride 99 mmol/L (98-107); Estimated GFR 86; Globulin 3.9 g/dL (2.4-3.5); Glucose 94 mg/dL (80-115); Potassium 4.5 mmol/L (3.5-5.1); Protein, Total 7.9 g/dL (5.8-8.1); Sodium 138 mmol/L (136-145)
[2021-10-18] MEDS ORDERED: Morphine 4 MG/ML VIAL ONE (21:25)
[2021-10-18] MEDS ORDERED: Fentanyl 100 MCG/2 ML VIAL ONE (21:30)
[2021-10-19] MEDS ORDERED: Vancomycin 1 GM/200 ML BAG ONE (00:12)
[2021-10-19] MEDS: Acetaminophen 325 MG TAB PO PRN ×3 (00:43→12:15)
[2021-10-19] MEDS ORDERED: Acetaminophen 325 MG TAB ONE ×3 (00:45→12:08)
[2021-10-19] MEDS ORDERED: Loratadine 5 MG/5 ML UDCUP PO PRN (01:58)
[2021-10-19] MEDS ORDERED: HYDROcodone/Acetaminophen 5/325 mg Tablet ONE ×2 (04:42→12:08)
[2021-10-19] MEDS: HYDROcodone/Acetaminophen 5/325 mg Tablet PO PRN ×4 (04:43→18:38)
[2021-10-19 05:30] LABS: #Basophils 0.1 thou/uL (0.0-0.2); #Eosinphils 0.2 thou/uL (0.0-0.7); #Lymphocytes 1.4 thou/uL (1.20-3.40); #Monocytes 0.7 thou/uL (0.11-0.59); #Neutrophils 4.1 thou/uL (1.40-6.50); %Eosinophils 2.4 % (0.0-10.0); %Lymphocytes 22.1 % (21.0-51.0); %Monocytes 10.6 % (0.0-10.0); Hemoglobin 12.8 g/dL (12.0-16.0); Mean Corpuscular HGB CONC 32.7 g/dL (32.0-36.0); Mean Corpuscular Volume 97.8 fL (78.0-98.0); Mean Platelet Volume 7.4 fL (7.4-10.4); Platelet Count 245 thou/uL (130-400); Red Blood Cell (RBC) Count 3.99 mill/uL (4.20-5.40); White Blood Cell (WBC) Count 6.4 thou/uL (4.8-10.8)
[2021-10-19 05:50] LABS: Anion Gap 14 mmol/L (10-20); BUN (Urea Nitrogen) 16 mg/dL (9.8-20.1); Calc. Creatinine Clearance 0 mL/min (70-130); Calcium 8.8 mg/dL (7.8-10.44); Carbon Dioxide 29 mmol/L (23-31); Chloride 98 mmol/L (98-107); Estimated GFR 87; Glucose 110 mg/dL (80-115); Potassium 4.1 mmol/L (3.5-5.1); Sodium 137 mmol/L (136-145)
[2021-10-19] MEDS ORDERED: Enoxaparin Sodium 40 MG/0.4 ML SYRINGE ONE (08:30)
[2021-10-19] MEDS: Enoxaparin Sodium 40 MG/0.4 ML SYRINGE SC SCH (08:37)
[2021-10-19 08:53] LABS: SARS-CoV-2 NAA Rapid Test Not Detected (NotDetected)
[2021-10-19] MEDS ORDERED: Dicyclomine 20 MG TAB PO PRN (11:37)
[2021-10-19 14:34] VITALS: BMI 49.4
[2021-10-19] MEDS: Vancomycin 1.5 GRAM/300 ML BAG 1.5 GM in Premix Bag 1 BAG IVPB SCH (16:26)
[2021-10-19] MEDS ORDERED: Loratadine 10 MG TAB PO SCH (20:00)
[2021-10-19] MEDS: Atorvastatin Calcium 20 MG TAB PO SCH (20:09)
[2021-10-19] MEDS: DULoxetine 60 MG CAP PO SCH (20:09)
[2021-10-19] MEDS: Metoprolol Tartrate 50 MG TAB PO SCH (20:09)
[2021-10-19] MEDS: Ondansetron PF 4 MG/2 ML Vial IVP PRN (20:10)
[2021-10-20] MEDS: Vancomycin 1.5 GRAM/300 ML BAG 1.5 GM in Premix Bag 1 BAG IVPB SCH ×2 (01:14→14:06)
[2021-10-20] MEDS: Acetaminophen 325 MG TAB PO PRN ×3 (01:17→23:23)
[2021-10-20] MEDS: Ondansetron PF 4 MG/2 ML Vial IVP PRN ×3 (04:46→16:42)
[2021-10-20] MEDS: Levothyroxine Sodium 88 MCG TAB PO SCH (04:47)
[2021-10-20] MEDS: HYDROcodone/Acetaminophen 5/325 mg Tablet PO PRN ×3 (04:47→16:42)
[2021-10-20] MEDS: DULoxetine 60 MG CAP PO SCH ×2 (08:31→19:40)
[2021-10-20] MEDS: Furosemide 40 MG TAB PO SCH (08:31)
[2021-10-20] MEDS: Enoxaparin Sodium 40 MG/0.4 ML SYRINGE SC SCH (08:31)
[2021-10-20] MEDS: Loratadine 10 MG TAB PO SCH (08:32)
[2021-10-20] MEDS: Losartan 25 MG TAB PO SCH (08:32)
[2021-10-20] MEDS: Metoprolol Tartrate 50 MG TAB PO SCH ×2 (08:34→19:39)
[2021-10-20 08:55] LABS: #Basophils 0.1 thou/uL (0.0-0.2); #Eosinphils 0.2 thou/uL (0.0-0.7); #Lymphocytes 0.8 thou/uL (1.20-3.40); #Monocytes 0.3 thou/uL (0.11-0.59); #Neutrophils 3.3 thou/uL (1.40-6.50); %Basophils 1.2 % (0.0-1.0); %Eosinophils 3.2 % (0.0-10.0); %Lymphocytes 17.8 % (21.0-51.0); %Monocytes 6.8 % (0.0-10.0); Hemoglobin 12.7 g/dL (12.0-16.0); Mean Corpuscular HGB CONC 31.4 g/dL (32.0-36.0); Mean Corpuscular Hemoglobin 31.4 pg (27.0-31.0); Mean Corpuscular Volume 99.8 fL (78.0-98.0); Mean Platelet Volume 7.6 fL (7.4-10.4); Platelet Count 234 thou/uL (130-400); RBC Distribution Width 10.8 % (11.5-14.5); Red Blood Cell (RBC) Count 4.06 mill/uL (4.20-5.40); White Blood Cell (WBC) Count 4.7 thou/uL (4.8-10.8)
[2021-10-20 09:15] LABS: Anion Gap 12 mmol/L (10-20); BUN (Urea Nitrogen) 12 mg/dL (9.8-20.1); Calc. Creatinine Clearance 181 mL/min (70-130); Calcium 8.5 mg/dL (7.8-10.44); Carbon Dioxide 33 mmol/L (23-31); Chloride 101 mmol/L (98-107); Estimated GFR 93; Glucose 120 mg/dL (80-115); Potassium 4.6 mmol/L (3.5-5.1); Sodium 141 mmol/L (136-145)
[2021-10-20] MEDS: Fluticasone Propionate Nasal Spray 16 gm Bottle NASAL SCH (11:08)
[2021-10-20] MEDS ORDERED: Cyclobenzaprine 10 MG TAB PO PRN (15:03)
[2021-10-20] MEDS: Atorvastatin Calcium 20 MG TAB PO SCH (19:36)
[2021-10-21 02:06] LABS: #Basophils 0.1 thou/uL (0.0-0.2); #Eosinphils 0.2 thou/uL (0.0-0.7); #Lymphocytes 1.1 thou/uL (1.20-3.40); #Monocytes 0.5 thou/uL (0.11-0.59); #Neutrophils 3.9 thou/uL (1.40-6.50); %Eosinophils 3.5 % (0.0-10.0); %Lymphocytes 19.2 % (21.0-51.0); %Neutrophils 67.4 % (42.0-75.0); Hemoglobin 12.6 g/dL (12.0-16.0); Mean Corpuscular HGB CONC 32.3 g/dL (32.0-36.0); Mean Platelet Volume 7.6 fL (7.4-10.4); Platelet Count 237 thou/uL (130-400); RBC Distribution Width 10.8 % (11.5-14.5); Red Blood Cell (RBC) Count 3.93 mill/uL (4.20-5.40); White Blood Cell (WBC) Count 5.8 thou/uL (4.8-10.8)
[2021-10-21] MEDS: Ondansetron PF 4 MG/2 ML Vial IVP PRN ×2 (02:06→08:21)
[2021-10-21 02:32] LABS: Vancomycin, Trough 16.6 ug/mL
[2021-10-21 02:43] LABS: Anion Gap 11 mmol/L (10-20); BUN (Urea Nitrogen) 14 mg/dL (9.8-20.1); Calc. Creatinine Clearance 173 mL/min (70-130); Carbon Dioxide 32 mmol/L (23-31); Chloride 99 mmol/L (98-107); Estimated GFR 89; Glucose 133 mg/dL (80-115); Magnesium 1.7 mg/dL (1.6-2.6); Potassium 3.9 mmol/L (3.5-5.1); Sodium 138 mmol/L (136-145)
[2021-10-21] MEDS: Vancomycin 1.5 GRAM/300 ML BAG 1.5 GM in Premix Bag 1 BAG IVPB SCH (02:52)
[2021-10-21] MEDS ORDERED: Vancomycin 1.5 GRAM/300 ML BAG 1.5 GM in Premix Bag 1 BAG IVPB SCH (03:00)
[2021-10-21] MEDS: Acetaminophen 325 MG TAB PO PRN ×2 (03:30→08:25)
[2021-10-21] MEDS: Levothyroxine Sodium 88 MCG TAB PO SCH (05:24)
[2021-10-21] MEDS: Enoxaparin Sodium 40 MG/0.4 ML SYRINGE SC SCH (08:25)
[2021-10-21] MEDS: Loratadine 10 MG TAB PO SCH (08:26)
[2021-10-21] MEDS: DULoxetine 60 MG CAP PO SCH (08:26)
[2021-10-21] MEDS: Metoprolol Tartrate 50 MG TAB PO SCH (08:26)
[2021-10-21] MEDS: Furosemide 40 MG TAB PO SCH (08:26)
[2021-10-21] MEDS: Losartan 25 MG TAB PO SCH (08:26)
[2021-10-21] MEDS: Fluticasone Propionate Nasal Spray 16 gm Bottle NASAL SCH (08:31)
[2021-10-21] MEDS ORDERED: Estradiol 1 MG TAB PO SCH (09:00)
[2021-10-21 09:24] VITALS: BP 152/73; TEMP 98.4
[2021-10-21] MEDS ORDERED: Fioricet 325/50/40 mg Tablet PO SCH ×2 (11:30→18:00)
== END 2021-10-21 15:14 | disposition home or self-care (01) | DRG 603 ==
LOC: ERS 17:40 → ERHOLD 23:02 → T4-A 10-19 13:45
PROVIDERS: ADMIT Internal Medicine Geriatric Medicine; ATTEND Internal Medicine Geriatric Medicine
DX: L03.116 Cellulitis of left lower limb (principal); I50.32 Chronic diastolic (congestive) heart failure; Z20.822 Contact with and (suspected) exposure to COVID-19; I11.0 Hypertensive heart disease with heart failure; E03.9 Hypothyroidism, unspecified; G89.29 Other chronic pain; M54.9 Dorsalgia, unspecified; K58.0 Irritable bowel syndrome with diarrhea; L03.115 Cellulitis of right lower limb; F31.9 Bipolar disorder, unspecified; Z60.2 Problems related to living alone; Z79.899 Other long term (current) drug therapy; Z88.5 Allergy status to narcotic agent; Z88.2 Allergy status to sulfonamides; Z88.8 Allergy status to other drugs, medicaments and biological substances; Z79.890 Hormone replacement therapy; Z90.49 Acquired absence of other specified parts of digestive tract; Z90.89 Acquired absence of other organs; Z90.710 Acquired absence of both cervix and uterus
CPT/HCPCS: 36415; 80048; 80053; 80202; 83605; 83735; 85025; 85652; 86140; 87040; 93970; 96372; 96374; 96375; J1650; J2270; J2405; J2543; J3010; J3370; U0002

== ENCOUNTER 2023-03-14 14:32 | Outpatient (CLI) | payer OTHER | END 2023-03-14 14:33 | disposition home or self-care (01) | LOC: BICRAD 14:32 | PROVIDERS: ATTEND Nurse Practitioner Family | DX: M79.631 Pain in right forearm (principal) ==

== ENCOUNTER 2023-05-13 14:16 | Emergency (ER) | payer OTHER ==
[2023-05-13 14:48] LABS: Bilirubin Negative (Negative); Blood, Urine Negative (Negative); CAUTI Indications for Culture Dysuria,urgency,freq; Clarity Clear (Clear); Glucose, Urine (Dipstick) Normal (Negative); Ketone, Urine Negative (Negative); Leukocyte Negative Leu/uL (Negative); Nitrite Negative (Negative); Protein, Urine (Dipstick) Negative (Neg-Trace); RBC/HPF 0-3 HPF (0-3); Specific Gravity, Urine 1.007 (1.002-1.036); Urobilinogen Normal mg/dL (Less than 2); WBC/HPF 0-3 HPF (0-3)
[2023-05-13 14:49] LABS: Bacteria/HPF Rare-Few HPF (None Seen); Urine Culture Reflex No No
[2023-05-13 15:28] LABS: #Basophils 0.1 thou/uL (0.0-0.2); #Eosinphils 0.1 thou/uL (0.0-0.7); #Monocytes 0.4 thou/uL (0.11-0.59); #Neutrophils 3.9 thou/uL (1.40-6.50); %Basophils 0.9 % (0.0-1.0); %Eosinophils 2.4 % (0.0-10.0); %Lymphocytes 17.9 % (21.0-51.0); %Monocytes 7.3 % (0.0-10.0); Hematocrit 41.6 % (36.0-47.0); Mean Corpuscular HGB CONC 31.3 g/dL (32.0-36.0); Mean Corpuscular Hemoglobin 31.6 pg (27.0-31.0); Mean Corpuscular Volume 101.2 fl (78.0-98.0); Mean Platelet Volume 9.7 fL (7.4-10.4); Platelet Count 289 10x3/uL (130-400); RBC Distribution Width 11.6 % (11.5-14.5); Red Blood Cell (RBC) Count 4.11 mill/uL (4.20-5.40); White Blood Cell (WBC) Count 5.5 10x3/uL (4.8-10.8)
[2023-05-13 15:51] LABS: ALT (SGPT) 15 U/L (8-55); AST (SGOT) 19 U/L (5-34); Albumin 3.8 g/dL (3.4-4.8); Alkaline Phosphatase 62 U/L (40-110); Anion Gap 12 mmol/L (10-20); BUN (Urea Nitrogen) 18 mg/dL (9.8-20.1); Bilirubin, Total 0.5 mg/dL (0.2-1.2); Calc. Creatinine Clearance 0 mL/min (70-130); Calcium 8.7 mg/dL (7.8-10.44); Carbon Dioxide 29 mmol/L (23-31); Chloride 101 mmol/L (98-107); Estimated GFR 82; Globulin 3.5 g/dL (2.4-3.5); Glucose 95 mg/dL (80-115); Protein, Total 7.3 g/dL (5.8-8.1); Sodium 138 mmol/L (136-145)
[2023-05-13] MEDS ORDERED: Doxycycline 100 MG CAP ONE (17:48)
== END 2023-05-13 17:56 | disposition home or self-care (01) ==
LOC: ERS 14:16
DX: L03.115 Cellulitis of right lower limb (principal); E78.5 Hyperlipidemia, unspecified; E03.9 Hypothyroidism, unspecified
CPT/HCPCS: 36415; 80053; 81001; 83605; 85025; 87040; 87086

== ENCOUNTER 2023-07-17 10:44 | Emergency (ER) | payer OTHER, MEDICAID | END 2023-07-17 14:59 | disposition left against medical advice (07) | LOC: ERS 10:44 | DX: L03.116 Cellulitis of left lower limb (principal) | CPT/HCPCS: 73590; 80053; 83605; 85025; 87040; 96374; 99283; J3370; 36415; J1885; J2543 ==

== ENCOUNTER 2023-09-05 10:47 | Emergency (ER) | payer OTHER, MEDICAID | END 2023-09-05 14:07 | disposition home or self-care (01) | LOC: ERS 10:47 | DX: R05.3 Chronic cough (principal); E03.9 Hypothyroidism, unspecified; E78.5 Hyperlipidemia, unspecified; Z79.899 Other long term (current) drug therapy | CPT/HCPCS: 71046 ==

== ENCOUNTER 2024-02-20 13:56 | Outpatient (CLI) | payer OTHER, MEDICAID | END 2024-02-20 13:57 | disposition home or self-care (01) | LOC: BICMAMMO 13:56 | PROVIDERS: ATTEND Nurse Practitioner Family | DX: R92.8 Other abnormal and inconclusive findings on diagnostic imaging of breast (principal) | CPT/HCPCS: 76642; 77066; G0279 ==

== ENCOUNTER 2024-08-04 08:04 | Observation (INO) | payer OTHER, MEDICAID ==
[2024-08-04 09:10] LABS: #Basophils Less than 0.03 10x3/uL (0.0-0.2); #Eosinophils 0.03 10x3/uL (0.0-0.7); #Monocytes 0.28 10x3/uL (0.11-0.59); #Neutrophils 6.25 10x3/uL (1.40-6.50); %Basophils 0.1 % (0.0-1.0); %Eosinophils 0.4 % (0.0-10.0); %Lymphocytes 1.5 % (21.0-51.0); %Monocytes 4.2 % (0.0-10.0); %Neutrophils 93.4 % (42.0-75.0); Hematocrit 42.2 % (36.0-47.0); Mean Corpuscular HGB CONC 30.8 g/dL (32.0-36.0); Mean Corpuscular Volume 90.9 fL (78.0-98.0); Mean Platelet Volume 10.5 fL (7.4-10.4); Platelet Count 300 10x3/uL (130-400); RBC Distribution Width 13.2 % (11.5-14.5); Red Blood Cell (RBC) Count 4.64 mill/uL (4.20-5.40)
[2024-08-04 09:15] LABS: Bacteria/HPF None Seen HPF (None Seen); Bilirubin Negative (Negative); Blood, Urine Negative (Negative); CAUTI Indications for Culture Dysuria,urgency,freq; Clarity Clear (Clear); Glucose, Urine (Dipstick) Normal (Negative); Ketone, Urine Negative (Negative); Leukocyte Negative Leu/uL (Negative); Nitrite Negative (Negative); Protein, Urine (Dipstick) Negative (Neg-Trace); RBC/HPF 0-3 HPF (0-3); Specific Gravity, Urine 1.029 (1.002-1.036); Squamous Epithelial 0-3 HPF (0-3); Urobilinogen Normal mg/dL (Less than 2); WBC/HPF 0-3 HPF (0-3)
[2024-08-04 09:16] LABS: Urine Culture Reflex No No
[2024-08-04 09:29] LABS: ALT (SGPT) 15 U/L (Less than 34); AST (SGOT) 34 U/L (11-34); Albumin 3.5 g/dL (3.1-4.5); Alkaline Phosphatase 73 U/L (40-110); Anion Gap 13 mmol/L (10-20); BUN (Urea Nitrogen) 21 mg/dL (9.8-20.1); Bilirubin, Total 0.5 mg/dL (0.3-1.2); Calc. Creatinine Clearance 0 mL/min (70-130); Calcium 8.1 mg/dL (7.8-10.44); Carbon Dioxide 24 mmol/L (23-31); Chloride 108 mmol/L (98-107); Estimated GFR 98; Globulin 3.7 g/dL (2.4-3.5); Glucose 134 mg/dL (80-115); Lipase 24 U/L (8-78); Magnesium 1.7 mg/dL (1.6-2.6); Potassium 4.1 mmol/L (3.5-5.1); Protein, Total 7.2 g/dL (5.8-8.1); Sodium 141 mmol/L (136-145)
[2024-08-04 09:31] LABS: Troponin I Less than 0.010 ng/mL (< 0.028)
[2024-08-04] MEDS ORDERED: Acetaminophen 500 MG TAB ONE (10:02)
[2024-08-04] MEDS ORDERED: Ketorolac Tromethamine 30 MG (1 mL) VIAL ONE (10:03)
[2024-08-04] MEDS ORDERED: Midazolam HCl 2 mg/2 ml Vial ONE (10:03)
[2024-08-04] MEDS ORDERED: Iopamidol-370 76% 500 ML MDV (1 ML CHARGE) ONE (11:50)
[2024-08-04] MEDS ORDERED: Dicyclomine 20 MG TAB ONE (13:39)
[2024-08-04] MEDS ORDERED: Calcium Carbonate 500 MG ChewTAB PO PRN (14:47)
[2024-08-04] MEDS ORDERED: Prochlorperazine Edisylate 10 MG in Sodium Chloride 0.9% 50 ML IVPB PRN (14:51)
[2024-08-04 15:10] VITALS: BMI 40.9
[2024-08-04] MEDS ORDERED: Labetalol HCl 100 MG/20 ML VIAL SLOW IVP PRN (15:54)
[2024-08-04] MEDS: Ondansetron ODT 4 MG TAB PO PRN (16:32)
[2024-08-04] MEDS: Ketorolac Tromethamine 30 MG (1 mL) VIAL IVP PRN (16:32)
[2024-08-04] MEDS: Enoxaparin 40 MG (0.4 mL) SYRINGE SC SCH (16:32)
[2024-08-04] MEDS: Lactated Ringer's 1,000 ML IV SCH (16:32)
[2024-08-04] MEDS ORDERED: Pantoprazole 40 MG DR.TAB PO PRN (17:56)
[2024-08-04] MEDS ORDERED: hydrALAZINE 20 MG/ML VIAL SLOW IVP PRN (17:56)
[2024-08-04] MEDS: DULoxetine 30 MG CAP PO SCH (20:24)
[2024-08-04] MEDS: Acetaminophen 325 MG TAB PO PRN (20:24)
[2024-08-04] MEDS ORDERED: Preparation H Suppository PR PRN (20:55)
[2024-08-04] MEDS ORDERED: Preparation H Ointment 57 gram tube TOP PRN (22:51)
[2024-08-05 06:34] LABS: #Basophils Less than 0.03 10x3/uL (0.0-0.2); #Eosinophils Less than 0.03 10x3/uL (0.0-0.7); #Monocytes 0.66 10x3/uL (0.11-0.59); #Neutrophils 2.94 10x3/uL (1.40-6.50); %Basophils 0.3 % (0.0-1.0); %Eosinophils 0.3 % (0.0-10.0); %Lymphocytes 8.5 % (21.0-51.0); %Monocytes 16.5 % (0.0-10.0); %Neutrophils 73.6 % (42.0-75.0); Hematocrit 37.4 % (36.0-47.0); Hemoglobin 11.2 g/dL (12.0-16.0); Mean Corpuscular HGB CONC 29.9 g/dL (32.0-36.0); Mean Corpuscular Hemoglobin 28.2 pg (27.0-31.0); Mean Corpuscular Volume 94.2 fL (78.0-98.0); Platelet Count 201 10x3/uL (130-400); RBC Distribution Width 13.2 % (11.5-14.5); Red Blood Cell (RBC) Count 3.97 mill/uL (4.20-5.40); White Blood Cell (WBC) Count 3.99 10x3/uL (4.8-10.8)
[2024-08-05] MEDS: Levothyroxine Sodium 88 MCG TAB PO SCH (06:55)
[2024-08-05 07:22] LABS: Anion Gap 11 mmol/L (10-20); BUN (Urea Nitrogen) 15 mg/dL (9.8-20.1); Calc. Creatinine Clearance 148 mL/min (70-130); Calcium 7.4 mg/dL (7.8-10.44); Carbon Dioxide 23 mmol/L (23-31); Chloride 110 mmol/L (98-107); Estimated GFR 94; Glucose 91 mg/dL (80-115); Potassium 3.6 mmol/L (3.5-5.1); Sodium 140 mmol/L (136-145)
[2024-08-05] MEDS ORDERED: DULoxetine 60 MG CAP PO SCH (09:00)
[2024-08-05] MEDS: Carvedilol 3.125 MG TAB PO SCH (09:38)
[2024-08-05] MEDS: Montelukast Sodium 10 mg Tablet PO SCH (09:39)
[2024-08-05] MEDS: Estradiol 1 MG TAB PO SCH (09:39)
[2024-08-05] MEDS: Calcitriol 0.25 MCG CAP PO SCH (09:39)
[2024-08-05] MEDS: Enoxaparin 40 MG (0.4 mL) SYRINGE SC SCH (09:39)
[2024-08-05] MEDS: Preparation H Ointment 28 GM TUBE TOP PRN (10:45)
[2024-08-05] MEDS: Cholestyramine/Aspartame 4 gm Packet PO SCH (21:12)
[2024-08-06 06:18] LABS: #Basophils Less than 0.03 10x3/uL (0.0-0.2); #Eosinophils 0.06 10x3/uL (0.0-0.7); #Monocytes 0.61 10x3/uL (0.11-0.59); #Neutrophils 1.85 10x3/uL (1.40-6.50); %Basophils 0.6 % (0.0-1.0); %Eosinophils 1.8 % (0.0-10.0); %Lymphocytes 22.2 % (21.0-51.0); %Monocytes 18.5 % (0.0-10.0); %Neutrophils 56.3 % (42.0-75.0); Hematocrit 37.6 % (36.0-47.0); Hemoglobin 11.3 g/dL (12.0-16.0); Mean Corpuscular HGB CONC 30.1 g/dL (32.0-36.0); Mean Corpuscular Hemoglobin 28.3 pg (27.0-31.0); Platelet Count 201 10x3/uL (130-400); RBC Distribution Width 13.1 % (11.5-14.5); White Blood Cell (WBC) Count 3.29 10x3/uL (4.8-10.8)
[2024-08-06 06:28] LABS: Anion Gap 11 mmol/L (10-20); BUN (Urea Nitrogen) 13 mg/dL (9.8-20.1); Calc. Creatinine Clearance 181 mL/min (70-130); Calcium 7.5 mg/dL (7.8-10.44); Carbon Dioxide 23 mmol/L (23-31); Chloride 109 mmol/L (98-107); Estimated GFR 100; Glucose 80 mg/dL (80-115); Potassium 3.6 mmol/L (3.5-5.1); Sodium 139 mmol/L (136-145)
[2024-08-06] MEDS: Multivit, Therapeutic 1 TAB PO SCH (07:44)
[2024-08-06] MEDS: Pantoprazole 40 MG DR.TAB PO SCH (07:44)
[2024-08-06 18:23] VITALS: BP 150/80; TEMP 98.4
== END 2024-08-06 15:04 | disposition home or self-care (01) ==
LOC: ERS 08:04 → T4-B 13:45
PROVIDERS: ADMIT Student in an Organized Health Care Education/Training Program; ATTEND Hospitalist
DX: K52.9 Noninfective gastroenteritis and colitis, unspecified (principal); I16.0 Hypertensive urgency; I11.0 Hypertensive heart disease with heart failure; I50.30 Unspecified diastolic (congestive) heart failure; E03.9 Hypothyroidism, unspecified; E86.9 Volume depletion, unspecified; F31.9 Bipolar disorder, unspecified; Z90.49 Acquired absence of other specified parts of digestive tract; Z90.89 Acquired absence of other organs; Z90.710 Acquired absence of both cervix and uterus; Z88.2 Allergy status to sulfonamides; Z91.018 Allergy to other foods; Z88.5 Allergy status to narcotic agent; Z79.51 Long term (current) use of inhaled steroids; Z79.899 Other long term (current) drug therapy
CPT/HCPCS: 51701; 70450; 71045; 74177; 80048 ×2; 80053; 81001; 83690; 83735; 83880; 84484; 85025 ×3; 87324; 87449; 93005; 96361; 96372 ×3; 96374; 96375; 96376 ×3; 99285; G0378 ×4; J1650 ×3; J1885 ×3; J2250; J7120 ×3; Q0162 ×2; Q9967; 36415